=== PATIENT | male | born 1960 | race Caucasian/White ===

== ENCOUNTER 2016-06-03 11:02 | Inpatient (IN) ==
[2016-06-03] MEDS ORDERED: Ondansetron 4 MG/2 ML VIAL IVP ONE (11:19)
[2016-06-03] MEDS ORDERED: 0.9 % Sodium Chloride 1,000 ML IVC ONE (11:19)
[2016-06-03] MEDS ORDERED: *HR* HYDROmorphone (PF) 1 MG/ML SYRINGE IVP ONE (11:19)
--- NOTE | 2016-06-03 11:23 | Emergency Department Note ---
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 Qualified Code(s): E11.65 - Type 2 diabetes mellitus with hyperglycemia Pancreatitis Qualifiers: Chronicity: acute Pancreatitis type: unspecified pancreatitis type Acute pancreatitis complication: unspecified Qualified Code(s): K85.90 - Acute pancreatitis without necrosis or infection, unspecified Disposition: Admitted As Inpatient Condition: Fair Referrals: NO,PCP [Primary Care Provider] - Forms: Work/School Release, ED Satisfaction Letter Abdominal Pain HPI - General Chief Complaint: ED Abdominal Pain Stated Complaint: abd pain, vomiting Source: patient, family Nursing Notes Reviewed: Yes Vital Signs Reviewed: Yes - History of Present Illness HPI Narrative: 55-year-old male presents emergency Department with possible incarcerated hernia. Patient's had a long-standing abdominal hernia, was seen in the emergency Department several weeks ago I was told he needed to follow up with surgery. He did not. Comes in today because of worsening pain now and nausea and vomiting. Is not any diarrhea. She has the pain is mostly right around the herniation which is very hard this morning and radiates up into the midepigastric area. Denies chest pain or shortness of breath. Pt Subjective Complaint: abdominal pain Consistency: constant Location: RLQ Pain Scale: 10 Quality: cramping, sharp Radiation: epigastric Improves with: nothing Worsens with: eating Associated symptoms: Reports: nausea, vomiting Treatments prior to arrival: none - Related Data Home Medications Medication Instructions Recorded Confirmed No Known Home Drugs 06/03/16 06/03/16 Allergies Allergy/AdvReac Type Severity Reaction Status Date / Time No Known Allergies Allergy Verified 06/03/16 12:09 All systems ED: reviewed and negative except as stated. Constitutional: Reports: as per HPI Eyes: Reports: as per HPI ENT ED: Reports: as per HPI Cardiovascular: Reports: as per HPI Respiratory: Reports: as per HPI Gastrointestinal: Reports: abdominal pain, nausea, vomiting Abdominal Pain PMH - Past Medical History Medical history: Reports: diabetes, hypertension Male Surgical History: Reports: no surgical history Psychiatric history: Reports: depression - Social History Smoking status: Never smoker Alcohol use: Reports: none Drug use: Reports: none Physical Exam - General Limitations: no limitations General appearance: alert, in no apparent distress - Head Head exam: atraumatic - Eye Eye exam: Present: normal appearance - ENT ENT exam: normal exam, normal oropharynx - Neck Neck exam: Present: normal inspection - Chest Chest inspection: Present: normal inspection, symmetric chest wall rise - Respiratory Respiratory exam: Present: normal lung sounds bilaterally - Cardiovascular Cardiovascular exam: Present: regular rate, normal rhythm - Abdominal Exam Abdominal exam: Present: soft, tenderness, hernia (Patient has a large nonreducible abdominal wall hernia in the right lower quadrant. It is very tender to palpation. There is no evidence of surrounding cellulitis. It is soft but nonreducible.) - Extremities Exam Extremities exam: Present: normal inspection - Neurological Exam Neurological exam: Present: alert, oriented X3 - Psychiatric Psychiatric exam: Present: normal affect - Skin Skin exam: Present: warm, dry, intact Course Vital Signs Temperature 98.2 F 06/03/16 11:08 Pulse Rate 81 06/03/16 11:08 Respiratory Rate 20 06/03/16 11:08 Blood Pressure 138/97 06/03/16 11:08 O2 Sat by Pulse Oximetry 98 06/03/16 11:08 Temperature 98.2 F 06/03/16 11:08 Pulse Rate 81 06/03/16 11:08 Respiratory Rate 20 06/03/16 11:08 Blood Pressure 138/97 06/03/16 11:08 O2 Sat by Pulse Oximetry 98 06/03/16 11:08 Oxygen Delivery Oxygen Delivery Room Air Abdominal Pain - MDM Narrative Medical decision making narrative: We will do abdominal lab workup, will also get a CT scan of the abdomen and pelvis to evaluate the herniation. I was unable to reduce along the emergency department will likely follow with surgery to determine definitive management. Labs revealed elevated white blood cell count and evidence to suggest acute pancreatitis. CT scan revealed omental fat but no incarcerated bowel. There is also no pancreatic inflammation on CT. I think the patient may have had some bowel go into the herniated area but then come back in his symptoms are improved with pain control, unfortunately the patient had a variety of metabolic abnormalities hyperglycemia and the pancreatitis that required hospitalization. Patient says he has not been taking his medications for some time now and he sought a variety of him of which she does not remember the names. Will discuss with the hospitalist and arrange for admission to correct his multiple metabolic derangements. Final evaluation prior to admission patient's pain had improved substantially. - Lab Data Lab results reviewed: Yes I reviewed the patient's lab results. Result diagrams: 06/03/16 11:27 06/03/16 11:27 Lab Results 06/03/16 06/03/16 06/03/16 Range/Units 11:27 11:27 12:18 WBC 16.3 H (4.3-11.1) K/mcL RBC 5.67 H (4.19-5.50) M/mcL Hgb 15.4 (12.9-16.9) g/dL Hct 45.5 (37.5-50.1) % MCV 80.2 L (83.0-100.0) fL MCH 27.2 L (28.0-33.3) pg MCHC 33.8 (31.6-35.5) g/dL RDW 12.6 (11.5-14.5) % Plt Count 404 H (140-400) K/mcL MPV 8.9 L (9.4-12.4) fL Immature Gran % 0.6 (0-4) % Seg Neutrophils % 88.6 % Lymphocytes % 6.1 % Monocytes % 4.0 % Eosinophils % 0.5 % Basophils % 0.2 % Neutrophils # 14.5 H (1.6-8.9) K/mcL Lymphocytes # 1.0 (0.6-4.6) K/mcL Monocytes # 0.7 (0.0-1.3) K/mcL Eosinophils # 0.1 (0.0-0.6) K/mcL Basophils # 0.0 (0.0-0.2) K/mcL VBG pH (7.32-7.42) pH Units VBG pCO2 (41-51) mmHg VBG pO2 (25-40) mmHg VBG HCO3 (21-27) mEq/L Sodium 133 L (136-145) mEq/L Potassium 5.0 H (3.5-4.5) mEq/L Chloride 99 (98-109) mEq/L Carbon Dioxide 21 (19-29) mEq/L BUN 14 (8-26) mg/dL Creatinine 1.20 (0.72-1.25) mg/dL Est GFR ( Amer) > 60 (> 60) Est GFR (Non-Af Amer) > 60 (> 60) BUN/Creatinine Ratio 12 (6-26) Glucose 550 H* (70-99) mg/dL POC Glucose (58-89) Calculated Osmolality 302 H (280-300) Lactic Acid (0.5-2.2) mmol/L Calcium 9.8 (8.6-10.8) mg/dL Total Bilirubin 0.5 (0.2-1.2) mg/dL Direct Bilirubin 0.2 (0.0-0.5) mg/dL Indirect Bilirubin 0.3 (0.0-1.2) mg/dL AST 17 (5-34) Units/L ALT 12 (0-55) Units/L Alkaline Phosphatase 101 (38-126) Units/L Serum Total Protein 7.4 (6.0-8.3) g/dL Albumin 3.9 (3.5-5.0) g/dL Globulin 3.5 (2.4-3.5) g/dL Albumin/Globulin Ratio 1.1 (1.1-2.2) Amylase 798 H (25-125) Units/L Lipase 1404 H (8-78) Units/L Beta-Hydroxybutyric Acd 0.69 H (0.02-0.27) mmol/L Urine Color (Yellow) Urine Clarity (Clear) Urine pH (5.0-8.0) pH Units Ur Specific [place] (1.010-1.025) Urine Protein (Neg-Trace) mg/dL Urine Glucose (UA) (Normal) mg/dL Urine Ketones (Negative) mg/dL Urine Blood (Negative) Urine Nitrite (Negative) Urine Bilirubin (Negative) Urine Urobilinogen (Normal) mg/dL Ur Leukocyte Esterase (Negative) Ur Culture Indicated? (NO) 06/03/16 06/03/16 06/03/16 Range/Units 12:18 12:31 12:59 WBC (4.3-11.1) K/mcL RBC (4.19-5.50) M/mcL Hgb (12.9-16.9) g/dL Hct (37.5-50.1) % MCV (83.0-100.0) fL MCH (28.0-33.3) pg MCHC (31.6-35.5) g/dL RDW (11.5-14.5) % Plt Count (140-400) K/mcL MPV (9.4-12.4) fL Immature Gran % (0-4) % Seg Neutrophils % % Lymphocytes % % Monocytes % % Eosinophils % % Basophils % % Neutrophils # (1.6-8.9) K/mcL Lymphocytes # (0.6-4.6) K/mcL Monocytes # (0.0-1.3) K/mcL Eosinophils # (0.0-0.6) K/mcL Basophils # (0.0-0.2) K/mcL VBG pH 7.32 (7.32-7.42) pH Units VBG pCO2 56 H (41-51) mmHg VBG pO2 25 (25-40) mmHg VBG HCO3 28.9 H (21-27) mEq/L Sodium (136-145) mEq/L Potassium (3.5-4.5) mEq/L Chloride (98-109) mEq/L Carbon Dioxide (19-29) mEq/L BUN (8-26) mg/dL Creatinine (0.72-1.25) mg/dL Est GFR ( Amer) (> 60) Est GFR (Non-Af Amer) (> 60) BUN/Creatinine Ratio (6-26) Glucose (70-99) mg/dL POC Glucose (58-89) Calculated Osmolality (280-300) Lactic Acid 1.5 (0.5-2.2) mmol/L Calcium (8.6-10.8) mg/dL Total Bilirubin (0.2-1.2) mg/dL Direct Bilirubin (0.0-0.5) mg/dL Indirect Bilirubin (0.0-1.2) mg/dL AST (5-34) Units/L ALT (0-55) Units/L Alkaline Phosphatase (38-126) Units/L Serum Total Protein (6.0-8.3) g/dL Albumin (3.5-5.0) g/dL Globulin (2.4-3.5) g/dL Albumin/Globulin Ratio (1.1-2.2) Amylase (25-125) Units/L Lipase (8-78) Units/L Beta-Hydroxybutyric Acd (0.02-0.27) mmol/L Urine Color Yellow (Yellow) Urine Clarity Clear (Clear) Urine pH 5.0 (5.0-8.0) pH Units Ur Specific [place] 1.010 (1.010-1.025) Urine Protein Negative (Neg-Trace) mg/dL Urine Glucose (UA) >=1000 H (Normal) mg/dL Urine Ketones 15 H (Negative) mg/dL Urine Blood Negative (Negative) Urine Nitrite Negative (Negative) Urine Bilirubin Negative (Negative) Urine Urobilinogen Normal (Normal) mg/dL Ur Leukocyte Esterase Negative (Negative) Ur Culture Indicated? NO (NO) 06/03/16 Range/Units 13:44 WBC (4.3-11.1) K/mcL RBC (4.19-5.50) M/mcL Hgb (12.9-16.9) g/dL Hct (37.5-50.1) % MCV (83.0-100.0) fL MCH (28.0-33.3) pg MCHC (31.6-35.5) g/dL RDW (11.5-14.5) % Plt Count (140-400) K/mcL MPV (9.4-12.4) fL Immature Gran % (0-4) % Seg Neutrophils % % Lymphocytes % % Monocytes % % Eosinophils % % Basophils % % Neutrophils # (1.6-8.9) K/mcL Lymphocytes # (0.6-4.6) K/mcL Monocytes # (0.0-1.3) K/mcL Eosinophils # (0.0-0.6) K/mcL Basophils # (0.0-0.2) K/mcL VBG pH (7.32-7.42) pH Units VBG pCO2 (41-51) mmHg VBG pO2 (25-40) mmHg VBG HCO3 (21-27) mEq/L Sodium (136-145) mEq/L Potassium (3.5-4.5) mEq/L Chloride (98-109) mEq/L Carbon Dioxide (19-29) mEq/L BUN (8-26) mg/dL Creatinine (0.72-1.25) mg/dL Est GFR ( Amer) (> 60) Est GFR (Non-Af Amer) (> 60) BUN/Creatinine Ratio (6-26) Glucose (70-99) mg/dL POC Glucose 303 H (58-89) Calculated Osmolality (280-300) Lactic Acid (0.5-2.2) mmol/L Calcium (8.6-10.8) mg/dL Total Bilirubin (0.2-1.2) mg/dL Direct Bilirubin (0.0-0.5) mg/dL Indirect Bilirubin (0.0-1.2) mg/dL AST (5-34) Units/L ALT (0-55) Units/L Alkaline Phosphatase (38-126) Units/L Serum Total Protein (6.0-8.3) g/dL Albumin (3.5-5.0) g/dL Globulin (2.4-3.5) g/dL Albumin/Globulin Ratio (1.1-2.2) Amylase (25-125) Units/L Lipase (8-78) Units/L Beta-Hydroxybutyric Acd (0.02-0.27) mmol/L Urine Color (Yellow) Urine Clarity (Clear) Urine pH (5.0-8.0) pH Units Ur Specific [place] (1.010-1.025) Urine Protein (Neg-Trace) mg/dL Urine Glucose (UA) (Normal) mg/dL Urine Ketones (Negative) mg/dL Urine Blood (Negative) Urine Nitrite (Negative) Urine Bilirubin (Negative) Urine Urobilinogen (Normal) mg/dL Ur Leukocyte Esterase (Negative) Ur Culture Indicated? (NO) - Radiology Data Radiology results reviewed: Yes I reviewed the patient's radiology results. - EKG Data EKG attestation: Yes I reviewed and interpreted this EKG. EKG shows normal: sinus rhythm Rate: normal Interpretation: no acute changes
[2016-06-03 11:33] LABS: Basophils % 0.2 %; Eosinophils # 0.1 K/mcL (0.0-0.6); Eosinophils % 0.5 %; Hematocrit 45.5 % (37.5-50.1); Hemoglobin 15.4 g/dL (12.9-16.9); Immature Granulocytes % 0.6 % (0-4); Lymphocytes % 6.1 %; Mean Corpuscular HGB Conc 33.8 g/dL (31.6-35.5); Mean Corpuscular Hemoglobin 27.2 pg (28.0-33.3); Mean Corpuscular Volume 80.2 fL (83.0-100.0); Mean Platelet Volume 8.9 fL (9.4-12.4); Monocytes # 0.7 K/mcL (0.0-1.3); Neutrophils # 14.5 K/mcL (1.6-8.9); Platelet Count 404 K/mcL (140-400); Red Blood Count 5.67 M/mcL (4.19-5.50); Red Cell Distribution Width 12.6 % (11.5-14.5); Segmented Neutrophils % 88.6 %
[2016-06-03 11:47] LABS: Alanine Aminotransferase 12 Units/L (0-55); Albumin 3.9 g/dL (3.5-5.0); Albumin/Globulin Ratio 1.1 (1.1-2.2); Alkaline Phosphatase 101 Units/L (38-126); Amylase 798 Units/L (25-125); Aspartate Amino Transferase 17 Units/L (5-34); BUN/Creatinine Ratio 12 (6-26); Bilirubin,Direct 0.2 mg/dL (0.0-0.5); Bilirubin,Indirect 0.3 mg/dL (0.0-1.2); Bilirubin,Total 0.5 mg/dL (0.2-1.2); Blood Urea Nitrogen 14 mg/dL (8-26); Calcium 9.8 mg/dL (8.6-10.8); Carbon Dioxide 21 mEq/L (19-29); Chloride 99 mEq/L (98-109); Globulin 3.5 g/dL (2.4-3.5); Osmolality,Calculated 302 (280-300); Sodium 133 mEq/L (136-145); Total Protein 7.4 g/dL (6.0-8.3); eGFR For African Americans > 60 (> 60); eGFR For Non-African Americans > 60 (> 60)
[2016-06-03 11:55] LABS: Glucose 550 mg/dL (70-99)
[2016-06-03 12:02] LABS: Lipase 1404 Units/L (8-78)
[2016-06-03] MEDS ORDERED: Insulin Human Regular 10 UNIT in 0.9 % Sodium Chloride 10 ML IV ONE (12:02)
[2016-06-03 12:24] LABS: VBG HCO3 28.9 mEq/L (21-27); VBG PH 7.32 pH Units (7.32-7.42)
[2016-06-03 12:41] LABS: Bilirubin,Urine Negative (Negative); Blood,Urine Negative (Negative); Clarity,Urine Clear (Clear); Color,Urine Yellow (Yellow); Glucose,Urine (UA) >=1000 mg/dL (Normal); Ketones,Urine 15 mg/dL (Negative); Leukocyte Esterase,Urine Negative (Negative); Nitrite,Urine Negative (Negative); Protein,Urine Negative (Neg-Trace); Urobilinogen,Urine Normal (Normal)
[2016-06-03] MEDS ORDERED: Naloxone 0.4 MG/ML INJ IVP PRN (16:04)
[2016-06-03] MEDS ORDERED: *HR* HYDROmorphone (PF) 1 MG/ML SYRINGE IVP PRN (16:04)
[2016-06-03] MEDS ORDERED: Ondansetron 4 MG/2 ML VIAL IVP PRN (16:04)
[2016-06-03] MEDS ORDERED: Acetaminophen 325 MG TABLET PO PRN (16:04)
--- NOTE | 2016-06-03 16:04 | Internal Med History&Physical ---
<Echo Garcia - Last Filed: 06/03/16 16:40> Date of Encounter: 06/03/16 Time of Encounter: 15:00 Assessment and Plan (1) Hernia of anterior abdominal wall Current visit: Yes Status: Acute 1 patient has had chronic umbilical hernia was experiencing pain this a.m.- presented to the ER CT of abdomen did not reveal no incarceration it was partially reproduced. consulted surgery-Dr. Caicedo was notified by telephone (2) Abdominal pain Current visit: Yes Status: Acute 1 patient was having acute abdominal pain which has presently resolved -patient has elevated lipase- will make nothing by mouth for now and administer Dilaudid as needed Qualifiers: Abdominal location: periumbilical Qualified Code(s): R10.33 - Periumbilical pain (3) Hyperglycemia due to type 2 diabetes mellitus Current visit: Yes Status: Acute 1 patient has history of type 2 diabetes is insulin-dependent however has not been taking insulin or checking blood sugars for approximately 6-8 months due to he has not been following with a prior care physician. He presented today with a blood sugar greater than 550 he also had elevated lipase 1440 was given IV insulin in the ER recheck blood sugars down to 240. 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 T's 12 total bili is 0.5 directives 0.2 and direct 0.3 calcium 9.8. We will continue to check lipase will give IV fluids of LR maintain patient nothing by mouth administer insulin for blood sugars Dilaudid and Zofran for pain and nausea Qualifiers: Chronicity: acute Pancreatitis type: unspecified pancreatitis type Acute pancreatitis complication: unspecified Qualified Code(s): K85.90 - Acute pancreatitis without necrosis or infection, unspecified (5) DVT prophylaxis Current visit: Yes Status: Acute 1 DELMA anthony Internal Medicine - H&P: HPI Chief complaint: abd pain Admitted From: Home Plans for Post Hospital Care: Home History of present illness: Mr. Pan is a 55 year old male with past history of TIA diabetes hypertension anxiety/depression. According to patient he woke approximately 9 AM this morning with sharp pain 10/10 around a long-standing umbilical hernia radiating up into the mid epigastric area. His abdomen was firm and hernia was hard and tender to touch He did experience episodes of nausea and vomiting of undigested food. He did have a bowel movement after the pain initiated, which she stated helped relieved some of the pain. He denies any chest pain shortness of breath fever chills or diarrhea . He presented to the emergency department with the above complaints. According to ER records attempts were made to reduce hernia however was only able to partially reduce. CT scan was obtained which revealed umbilical hernia containing fat as well as a right inguinal hernia containing fat. Lab work revealed elevated glucose at 550 potassium of 5 sodium 133 amylase 798 lipase 1404 venous blood gas with pH 7.32 PCO2 56 PO2 is 25 bicarbonate 28.9 lactate 1.5. The patient was given IV insulin as well as pain medication antiemetic and IV fluids He is admitted for further workup and evaluation. He did have a similar episode a few months ago was seen in the emergency department for similar symptoms he was advised to follow-up with surgery which he did not. He has not seen his primary care doctor in approximately 6-8 months and has not been taking insulin or any medication for the past 6-8 months. Presently the patient denies any pain/discomfort nausea or vomiting at this time. His abdomen is soft nontender, umbilical hernia soft surrounding skin is pink and warm no discoloration noted. At this time he is hemodynamically stable. I reviewed this case with who agrees with the plan. Past Med Surg Social Fam HX - Past Medical History Medical history: diabetes, hypertension Psychiatric history: depression - Past Surgical History Surgical History: no surgical history - Social History Smoking Status: Never smoker Smokeless Tobacco Status: No Alcohol use: none Drug use: none - Family History Mother Living Status: Hx Family Endocrine Disorder: Yes Father Living Status: Cause of : suicide Internal Medicine - H&P: Meds No Known Home Drugs 06/03/16 [History] Allergies No Known Allergies Allergy (Verified 06/03/16 12:09) All Systems PM: A 10-system review of systems was performed and is negative for pertinent findings except as documented above in the HPI. - Constitutional Constitutional: no chills, no fever(s), no night sweats - EENT Eyes: no change in vision, no discharge, no pain, no photophobia - Cardiovascular Cardiovascular ROS IM: no chest pain, no diaphoresis, no dyspnea, no lightheadedness, no palpitations, no syncope - Respiratory Respiratory: no cough, no dyspnea, no wheezing, no excessive phlegm production - Gastrointestinal Gastrointestinal: abdominal pain, constipation, nausea, vomiting - Musculoskeletal Musculoskeletal ROS IM: no numbness, no tingling - Neurological Neurological ROS: no confusion, no convulsions, no focal weakness, no numbness, no tingling, no tremor(s) - Constitutional Vitals: Temp Pulse Resp BP Pulse Ox 97.9 F 69 16 124/76 95 06/03/16 14:43 06/03/16 14:43 06/03/16 14:43 06/03/16 14:43 06/03/16 14:43 General appearance: Present: A&O X 3, answers questions appropriately - Head Head exam: Present: atraumatic, normocephalic - Eye Eye exam: Present: PERRL, conjuntiva pink, sclera anicteric Pupils: Present: PERRL - Neck Neck exam general surgery: Present: supple, trachea midline. Absent: lymphadenopathy - Respiratory Respiratory exam: Present: CTAB. Absent: accessory muscle use, rales, rhonchi, wheezes - Cardiovascular Cardiovascular exam: Present: RRR, +S1, +S2. Absent: diastolic murmur, gallop, rubs, systolic murmur - GI/Abdominal GI/Abdominal exam: Present: hernia, normal bowel sounds, soft, no peritoneal signs. Absent: distended, tenderness - Extremities Exam Extremities exam: Present: warm, radial pulses palpable and symetrical. Absent : calf tenderness, cyanotic, pedal edema - Neurological Exam Neurological exam: Present: CN II-XII intact, oriented X3, no focal deficits. Absent: pronater drift, facial droop, speech deficit Internal Med - H&P Results - Labs CBC & Chem 7: 06/03/16 11:27 06/03/16 11:27 - EKG Data EKG shows normal: sinus rhythm, ST-T waves Rate: normal - Diagnostic Studies CT scan - abdomen Additional comments: Per radiology read umbilical hernia contains fat only. There is also a fat- containing right inguinal hernia <Stuart Meyer - Last Filed: 06/04/16 09:03> Date of Encounter: 06/04/16 Internal Medicine - H&P: HPI History of present illness: Mr. Pan is a 55 year old male All Systems PM: A 10-system review of systems was performed and is negative for pertinent findings except as documented above in the HPI. - Constitutional Vitals: Temp Pulse Resp BP Pulse Ox 98.3 F 77 16 129/83 95 06/04/16 07:15 06/04/16 07:15 06/04/16 07:15 06/04/16 07:15 06/04/16 07:15 Internal Med - H&P Results - Labs CBC & Chem 7: 06/04/16 04:01 06/04/16 04:01 Labs: Short CBC 06/04/16 Range/Units 04:01 WBC 14.0 H (4.3-11.1) K/mcL Hgb 14.1 (12.9-16.9) g/dL Hct 41.0 (37.5-50.1) % Plt Count 347 (140-400) K/mcL Neutrophils # 11.3 H (1.6-8.9) K/mcL BMP 06/04/16 04:01 Sodium 138 Potassium 4.0 D Chloride 106 Carbon Dioxide 22 BUN 11 Creatinine 0.80 Glucose 175 H Calcium 9.1 Liver Function 06/04/16 Range/Units 04:01 Total Bilirubin 0.7 (0.2-1.2) mg/dL Direct Bilirubin 0.3 (0.0-0.5) mg/dL AST 15 (5-34) Units/L ALT 10 (0-55) Units/L Alkaline Phosphatase 80 (38-126) Units/L Albumin 3.2 L (3.5-5.0) g/dL - Attending Attestation I examined this patient and my medical decision-making was reviewed with the Advanced Practice Provider. I agree with the documented findings, disposition and treatment plan as described except to the extent set forth below. Patient presented to the hospital with severe abdominal pain, he has a periumbilical hernia. On exam he is in no distress heart is regular S1 and S2. Abdomen is soft nontender nondistended, orange-sized umbilical hernia partially was reducible and nontender to palpation. CT scan of the abdomen reviewed by myself shows fat-containing umbilical hernia. Lipase was elevated. We will treat the patient for acute pancreatitis. Nothing by mouth. IV LR. Surgical consult. Repeat amylase and lipase in the morning.
[2016-06-03] MEDS ORDERED: Dextrose Gel 15 GM PO PRN ×2 (16:12)
[2016-06-03] MEDS ORDERED: *HR* Dextrose 50 % in Water (Syg) 50 ML SYRINGE IVP PRN (16:12)
[2016-06-03] MEDS ORDERED: D5% in Water 1,000 ML IV PRN (16:12)
[2016-06-03] MEDS ORDERED: Ringers Solution, Lactated 1,000 ML IVC SCH (16:15)
[2016-06-03] MEDS: Ringers Solution, Lactated 1,000 ML IVC SCH (17:43)
[2016-06-03] MEDS: Insulin LISPRO 300 UNITS/3 ML VIAL SQ SCH (18:32)
[2016-06-03] MEDS: Pantoprazole 40 MG VIAL IVP SCH (19:35)
[2016-06-04] MEDS: Insulin LISPRO 300 UNITS/3 ML VIAL SQ SCH ×4 (00:47→18:00)
[2016-06-04] MEDS: Ringers Solution, Lactated 1,000 ML IVC SCH ×3 (00:50→17:45)
[2016-06-04 04:43] LABS: Basophils % 0.3 %; Eosinophils # 0.2 K/mcL (0.0-0.6); Eosinophils % 1.1 %; Hemoglobin 14.1 g/dL (12.9-16.9); Immature Granulocytes % 0.6 % (0-4); Lymphocytes # 1.7 K/mcL (0.6-4.6); Lymphocytes % 12.4 %; Mean Corpuscular HGB Conc 34.4 g/dL (31.6-35.5); Mean Corpuscular Hemoglobin 27.8 pg (28.0-33.3); Mean Corpuscular Volume 80.7 fL (83.0-100.0); Monocytes # 0.7 K/mcL (0.0-1.3); Monocytes % 4.8 %; Neutrophils # 11.3 K/mcL (1.6-8.9); Platelet Count 347 K/mcL (140-400); Red Blood Count 5.08 M/mcL (4.19-5.50); Red Cell Distribution Width 12.7 % (11.5-14.5); Segmented Neutrophils % 80.8 %
[2016-06-04 04:52] LABS: Estimated Average Glucose > 355 mg/dl; Hemoglobin A1C >= 14.1 %
[2016-06-04 05:01] LABS: Alanine Aminotransferase 10 Units/L (0-55); Albumin 3.2 g/dL (3.5-5.0); Albumin/Globulin Ratio 1.1 (1.1-2.2); Alkaline Phosphatase 80 Units/L (38-126); Amylase 294 Units/L (25-125); Aspartate Amino Transferase 15 Units/L (5-34); BUN/Creatinine Ratio 14 (6-26); Bilirubin,Direct 0.3 mg/dL (0.0-0.5); Bilirubin,Indirect 0.4 mg/dL (0.0-1.2); Bilirubin,Total 0.7 mg/dL (0.2-1.2); Blood Urea Nitrogen 11 mg/dL (8-26); Calcium 9.1 mg/dL (8.6-10.8); Carbon Dioxide 22 mEq/L (19-29); Chloride 106 mEq/L (98-109); Glucose 175 mg/dL (70-99); Lipase 195 Units/L (8-78); Osmolality,Calculated 290 (280-300); Sodium 138 mEq/L (136-145); Total Protein 6.2 g/dL (6.0-8.3); eGFR For African Americans > 60 (> 60); eGFR For Non-African Americans > 60 (> 60)
[2016-06-04] MEDS: Pantoprazole 40 MG VIAL IVP SCH (09:16)
--- NOTE | 2016-06-04 16:32 | Internal Med Progress Note ---
Date of Encounter: 06/04/16 Time of Encounter: 11:00 - Assessment and plan (1) Pancreatitis Current Visit: Yes Status: Acute Assessment and plan: will advance diet to CLD today. Less pain. Contne with iv fluids. Qualifiers: Chronicity: acute Pancreatitis type: unspecified pancreatitis type Acute pancreatitis complication: unspecified Qualified Code(s): K85.90 - Acute pancreatitis without necrosis or infection, unspecified (2) Hernia of anterior abdominal wall Current Visit: Yes Status: Acute Assessment and plan: Follow Surgical team recommendations. (3) Hyperglycemia due to type 2 diabetes mellitus Current Visit: Yes Status: Acute Assessment and plan: Continue with insulin therapy. HbA1C 14. Qualifiers: Diabetes mellitus fdc insulin use: with fdc use Qualified Code( s): E11.65 - Type 2 diabetes mellitus with hyperglycemia; Z79.4 - group home ( current) use of insulin (4) DVT prophylaxis Current Visit: Yes Status: Acute - Time Spent With Patient 25 - 35 minutes - Subjective Interval history: Patient was seen and examined during rounds. He denied pain during this encounter. - Constitutional Vitals: Temp Pulse Resp BP Pulse Ox 98.0 F 68 14 142/90 96 06/04/16 14:54 06/04/16 14:54 06/04/16 14:54 06/04/16 14:54 06/04/16 14:54 General appearance: Present: A&O X 3, answers questions appropriately Exam: umbilicla hernia noted. no tenderness. - Head Head exam: Present: atraumatic, normocephalic - Eye Eye exam: Present: PERRL, conjuntiva pink, sclera anicteric Pupils: Present: PERRL - Neck Neck exam general surgery: Present: supple, trachea midline. Absent: lymphadenopathy - Respiratory Respiratory exam: Present: CTAB. Absent: accessory muscle use, rales, rhonchi, wheezes - Cardiovascular Cardiovascular exam: Present: RRR, +S1, +S2. Absent: diastolic murmur, gallop, rubs, systolic murmur - GI/Abdominal GI/Abdominal exam: Present: normal bowel sounds, soft, no peritoneal signs. Absent: distended, tenderness - Extremities Exam Extremities exam: Present: warm, radial pulses palpable and symetrical. Absent : calf tenderness, cyanotic, pedal edema - Neurological Exam Neurological exam: Present: CN II-XII intact, oriented X3, no focal deficits. Absent: pronater drift, facial droop, speech deficit - Skin Skin exam: Present: dry, intact Internal Medicine: Result - Labs CBC & Chem 7: 06/04/16 04:01 06/04/16 04:01 Labs: Short CBC 06/04/16 Range/Units 04:01 WBC 14.0 H (4.3-11.1) K/mcL Hgb 14.1 (12.9-16.9) g/dL Hct 41.0 (37.5-50.1) % Plt Count 347 (140-400) K/mcL Neutrophils # 11.3 H (1.6-8.9) K/mcL BMP 06/04/16 04:01 Sodium 138 Potassium 4.0 D Chloride 106 Carbon Dioxide 22 BUN 11 Creatinine 0.80 Glucose 175 H Calcium 9.1 Liver Function 06/04/16 Range/Units 04:01 Total Bilirubin 0.7 (0.2-1.2) mg/dL Direct Bilirubin 0.3 (0.0-0.5) mg/dL AST 15 (5-34) Units/L ALT 10 (0-55) Units/L Alkaline Phosphatase 80 (38-126) Units/L Albumin 3.2 L (3.5-5.0) g/dL Consult Discharge Plan - Plan Referrals: Omkar Cobb MD [Partnered Physician] -
--- NOTE | 2016-06-04 16:45 | General Surgery Consult Note ---
<Yung Wilks - Last Filed: 06/04/16 16:49> Date of Encounter: 06/04/16 Time of Encounter: 11:10 Assessment and Plan (1) Hernia of anterior abdominal wall Current Visit: Yes Status: Acute Currently pain has resolved. Discussed option of herniorrhaphy today, to which patient declined, stating he rather pursue surgery as an outpatient at a later time. Surgery will sign off at this time, thank you for involving us in this patient' s care. Please feel free to contact us with any further questions. (2) Abdominal pain Current Visit: Yes Status: Resolved Qualifiers: Abdominal location: periumbilical Qualified Code(s): R10.33 - Periumbilical pain (3) Hyperglycemia due to type 2 diabetes mellitus Current Visit: Yes Status: Chronic Noncompliant, A1C >=14.1 Management per medicine service Will need follow up with primary care provider. Qualifiers: Diabetes mellitus butcherette insulin use: with shelter use Qualified Code( s): E11.65 - Type 2 diabetes mellitus with hyperglycemia; Z79.4 - USP ( current) use of insulin (4) Pancreatitis Current Visit: Yes Status: Acute Improving Amylase 798>294 Lipase 1404>195 Management per medicine service Qualifiers: Chronicity: acute Pancreatitis type: unspecified pancreatitis type Acute pancreatitis complication: unspecified Qualified Code(s): K85.90 - Acute pancreatitis without necrosis or infection, unspecified History of Present Illness Consult date: 06/03/16 Reason for consult: hernia Requesting physician: Echo Garcia History of present illness: Mr. Pan is a 55 year old male that present to the ED for sudden sharp pain yesterday morning around his long-standing umbilical hernia of approx 20 years. He states he has had similar pain in the past, approx 4 months ago that resolved on its own. Patient states he had both nausea and vomiting prior to arrival. He denies any chest pain, shortness of breath, diarrhea, constipation. CT done in ED showed umbilical hernia containing fat only; there is also a fat- containing right inguinal hernia. In the ED patient was also found to be hyperglycemic with BG 550 (A1C >=14.1) and elevated amylase 798 and lipase 1404. Patient admitted to Medicine Service for further evaluation. Patient states he does not have a primary care provider. Past Med Surg Social Fam HX - Past Medical History Source: patient Medical history: diabetes, hypertension Psychiatric history: depression - Past Surgical History Surgical History: no surgical history - Social History Smoking Status: Never smoker Smokeless Tobacco Status: No Alcohol use: none Drug use: none - Family History Mother Living Status: Hx Family Endocrine Disorder: Yes Father Living Status: Cause of : suicide Medications and Allergies No Known Home Drugs 06/03/16 [History] Allergies No Known Allergies Allergy (Verified 06/03/16 12:09) Review of Systems All systems PM: A 10-system review of systems was performed and is negative for pertinent findings except as documented above in the HPI. - Constitutional no chills, no fever(s) - EENT Nose, mouth and throat: no dizziness, no dysphagia - Cardiovascular no chest pain, no dyspnea - Respiratory no dyspnea - Gastrointestinal abdominal pain, nausea, vomiting, no constipation, no diarrhea - Genitourinary no dysuria - Neurological no confusion, no dizziness General Surgery Exam Initial Vital Signs Temp Pulse Resp BP Pulse Ox 98.2 F 81 20 138/97 98 06/03/16 11:08 06/03/16 11:08 06/03/16 11:08 06/03/16 11:08 06/03/16 11:08 - General physical appearance well developed, well nourished, no distress - Eyes normal ocular movement - ENT normal mucosa, atraumatic, normocephalic - Neck trachea midline - Respiratory normal respiratory effort, clear to auscultation - Cardiovascular Cardiovascular exam: Present: RRR - Abdomen Abdomen general surgery: Present: bowel sounds present, soft, non tender Hernia: Present: umbilical (partially reducible) - Integumentary Integumentary general surgery: Present: warm and dry, no abnormal pigmentation - Neurologic Present: CN 2-12 grossly intact - Psychiatric Psychiatric general surgery: Present: A&Ox3, speech is normal, memory intact Exam Initial Vital Signs Temp Pulse Resp BP Pulse Ox 98.2 F 81 20 138/97 98 06/03/16 11:08 06/03/16 11:08 06/03/16 11:08 06/03/16 11:08 06/03/16 11:08 Results - Labs 06/04/16 04:01 06/04/16 04:01 Abnormal lab results WBC 14.0 K/mcL (4.3-11.1) H 06/04/16 04:01 MCV 80.7 fL (83.0-100.0) L 06/04/16 04:01 MCH 27.8 pg (28.0-33.3) L 06/04/16 04:01 MPV 9.0 fL (9.4-12.4) L 06/04/16 04:01 Neutrophils # 11.3 K/mcL (1.6-8.9) H 06/04/16 04:01 VBG pCO2 56 mmHg (41-51) H 06/03/16 12:18 VBG HCO3 28.9 mEq/L (21-27) H 06/03/16 12:18 Glucose 175 mg/dL (70-99) H 06/04/16 04:01 POC Glucose 186 (58-89) H 06/04/16 11:15 Hemoglobin A1c >= 14.1 % (-5.6) H 06/04/16 04:01 Albumin 3.2 g/dL (3.5-5.0) L 06/04/16 04:01 Amylase 294 Units/L (25-125) H 06/04/16 04:01 Lipase 195 Units/L (8-78) H 06/04/16 04:01 Beta-Hydroxybutyric Acd 0.69 mmol/L (0.02-0.27) H 06/03/16 12:18 Urine Glucose (UA) >=1000 mg/dL (Normal) H 06/03/16 12:31 Urine Ketones 15 mg/dL (Negative) H 06/03/16 12:31 Diabetes panel 06/04/16 06/04/16 Range/Units 04:01 04:01 Sodium 138 (136-145) mEq/L Potassium 4.0 D (3.5-4.5) mEq/L Chloride 106 (98-109) mEq/L Carbon Dioxide 22 (19-29) mEq/L BUN 11 (8-26) mg/dL Creatinine 0.80 (0.72-1.25) mg/dL Glucose 175 H (70-99) mg/dL Hemoglobin A1c >= 14.1 H ( - 5.6) % Calcium 9.1 (8.6-10.8) mg/dL AST 15 (5-34) Units/L ALT 10 (0-55) Units/L Alkaline Phosphatase 80 (38-126) Units/L Albumin 3.2 L (3.5-5.0) g/dL Calcium panel 06/04/16 Range/Units 04:01 Calcium 9.1 (8.6-10.8) mg/dL Albumin 3.2 L (3.5-5.0) g/dL Pituitary panel 06/04/16 Range/Units 04:01 Sodium 138 (136-145) mEq/L Potassium 4.0 D (3.5-4.5) mEq/L Chloride 106 (98-109) mEq/L Carbon Dioxide 22 (19-29) mEq/L BUN 11 (8-26) mg/dL Creatinine 0.80 (0.72-1.25) mg/dL Glucose 175 H (70-99) mg/dL Calcium 9.1 (8.6-10.8) mg/dL Adrenal panel 06/04/16 Range/Units 04:01 Sodium 138 (136-145) mEq/L Potassium 4.0 D (3.5-4.5) mEq/L Chloride 106 (98-109) mEq/L Carbon Dioxide 22 (19-29) mEq/L BUN 11 (8-26) mg/dL Creatinine 0.80 (0.72-1.25) mg/dL Glucose 175 H (70-99) mg/dL Calcium 9.1 (8.6-10.8) mg/dL Total Bilirubin 0.7 (0.2-1.2) mg/dL AST 15 (5-34) Units/L ALT 10 (0-55) Units/L Alkaline Phosphatase 80 (38-126) Units/L Albumin 3.2 L (3.5-5.0) g/dL All other labs normal. Consult Discharge Plan - Plan Additional Instructions: Call Surgery when you would like to further discuss hernia repair. Referrals: Maddie Caicedo MD [Partnered Physician] - (Patient to call when he is ready to discuss further about hernia repair.) Omkar Cobb MD [Partnered Physician] - <Maddie Caicedo - Last Filed: 06/04/16 18:01> Date of Encounter: 06/04/16 Assessment and Plan (1) Umbilical hernia, incarcerated Current Visit: Yes Status: Chronic Patient had a 20 year history of this hernia. It is incarcerated but not strangulated. CT scan shows only omental fat within the hernia defect. There is no stranding around the omentum on the CT scan. Discussed with the patient potentially going to the OR today for an open hernia repair with mesh since he is in the hospital and came because he was symptomatic. Patient declined at this time and states that he would like to get his medical issues under control first which is reasonable. He should be referred to the family practice clinic upon discharge as he has no PCP. Gen. surgery will sign off at this time, and please call back if needed History of Present Illness History of present illness: Patient is a 55-year-old male who has had a long-standing umbilical hernia which she states for approximately 20 years. He normally does not bother him but he has had several episodes in the past but has a few times more recently. Yesterday he started having periumbilical pain which she described as sharp without radiation. He had nausea yesterday and today and vomiting as well. Review of Systems All systems PM: reviewed and no additional remarkable complaints except as stated All systems PM: A 10-system review of systems was performed and is negative for pertinent findings except as documented above in the HPI. General Surgery Exam Initial Vital Signs Temp Pulse Resp BP Pulse Ox 98.2 F 81 20 138/97 98 06/03/16 11:06/03/16 11:06/03/16 11:06/03/16 11:06/03/16 11:08 - General physical appearance well developed, well nourished, no distress - Eyes PERRL, normal ocular movement - ENT normal mucosa, atraumatic, normocephalic - Respiratory normal expansion, clear to auscultation - Cardiovascular Cardiovascular exam: Present: RRR - Abdomen Abdomen general surgery: Present: bowel sounds present, soft, non tender Hernia: Present: umbilical (Very large non-reducible umbilical hernia, no overlying skin changes, nontender) - Integumentary Integumentary general surgery: Present: warm and dry, no abnormal pigmentation - Neurologic Present: CN 2-12 grossly intact - Musculoskeletal Present: normal gait, normal posture - Psychiatric Psychiatric general surgery: Present: A&Ox3, speech is normal Exam Initial Vital Signs Temp Pulse Resp BP Pulse Ox 98.2 F 81 20 138/97 98 06/03/16 11:06/03/16 11:08 06/03/16 11:08 06/03/16 11:08 06/03/16 11:08 Results - Labs 06/04/16 04:01 06/04/16 04:01 Abnormal lab results WBC 14.0 K/mcL (4.3-11.1) H 06/04/16 04:01 MCV 80.7 fL (83.0-100.0) L 06/04/16 04:01 MCH 27.8 pg (28.0-33.3) L 06/04/16 04:01 MPV 9.0 fL (9.4-12.4) L 06/04/16 04:01 Neutrophils # 11.3 K/mcL (1.6-8.9) H 06/04/16 04:01 VBG pCO2 56 mmHg (41-51) H 06/03/16 12:18 VBG HCO3 28.9 mEq/L (21-27) H 06/03/16 12:18 Glucose 175 mg/dL (70-99) H 06/04/16 04:01 POC Glucose 160 (58-89) H 06/04/16 17:15 Hemoglobin A1c >= 14.1 % (-5.6) H 06/04/16 04:01 Albumin 3.2 g/dL (3.5-5.0) L 06/04/16 04:01 Amylase 294 Units/L (25-125) H 06/04/16 04:01 Lipase 195 Units/L (8-78) H 06/04/16 04:01 Beta-Hydroxybutyric Acd 0.69 mmol/L (0.02-0.27) H 06/03/16 12:18 Urine Glucose (UA) >=1000 mg/dL (Normal) H 06/03/16 12:31 Urine Ketones 15 mg/dL (Negative) H 06/03/16 12:31 Diabetes panel 06/04/16 06/04/16 Range/Units 04:01 04:01 Sodium 138 (136-145) mEq/L Potassium 4.0 D (3.5-4.5) mEq/L Chloride 106 (98-109) mEq/L Carbon Dioxide 22 (19-29) mEq/L BUN 11 (8-26) mg/dL Creatinine 0.80 (0.72-1.25) mg/dL Glucose 175 H (70-99) mg/dL Hemoglobin A1c >= 14.1 H ( - 5.6) % Calcium 9.1 (8.6-10.8) mg/dL AST 15 (5-34) Units/L ALT 10 (0-55) Units/L Alkaline Phosphatase 80 (38-126) Units/L Albumin 3.2 L (3.5-5.0) g/dL Calcium panel 06/04/16 Range/Units 04:01 Calcium 9.1 (8.6-10.8) mg/dL Albumin 3.2 L (3.5-5.0) g/dL Pituitary panel 06/04/16 Range/Units 04:01 Sodium 138 (136-145) mEq/L Potassium 4.0 D (3.5-4.5) mEq/L Chloride 106 (98-109) mEq/L Carbon Dioxide 22 (19-29) mEq/L BUN 11 (8-26) mg/dL Creatinine 0.80 (0.72-1.25) mg/dL Glucose 175 H (70-99) mg/dL Calcium 9.1 (8.6-10.8) mg/dL Adrenal panel 06/04/16 Range/Units 04:01 Sodium 138 (136-145) mEq/L Potassium 4.0 D (3.5-4.5) mEq/L Chloride 106 (98-109) mEq/L Carbon Dioxide 22 (19-29) mEq/L BUN 11 (8-26) mg/dL Creatinine 0.80 (0.72-1.25) mg/dL Glucose 175 H (70-99) mg/dL Calcium 9.1 (8.6-10.8) mg/dL Total Bilirubin 0.7 (0.2-1.2) mg/dL AST 15 (5-34) Units/L ALT 10 (0-55) Units/L Alkaline Phosphatase 80 (38-126) Units/L Albumin 3.2 L (3.5-5.0) g/dL All other labs normal. - Imaging CT scan - abdomen: report reviewed, image reviewed CT scan - pelvis: report reviewed, image reviewed - Attending Attestation I examined this patient and my medical decision-making was reviewed with the SHELL FREEZING MACHINE OPERATOR/PA/Advanced Practice Nurse/Resident Physician. I agree with the documented findings, disposition and treatment plan as described except to the extent set forth below.
[2016-06-05] MEDS: Insulin LISPRO 300 UNITS/3 ML VIAL SQ SCH ×3 (00:05→11:27)
--- NOTE | 2016-06-05 00:33 | Electrocardiograph Report ---
[facility] Test Date: 2016-06-03 Pat Name: Romeo Pan Department: 103 Room: 3A42 Gender: M [employer]: : [id number] Requested By: Codey Cardona Order Number: [id number] Reading MD: Adonis Taveras MD Measurements Intervals [place] Rate: 70 P: 16 NV: 133 QRS: -18 QRSD: 97 T: 21 QT: 379 QTc: 400 Interpretive Statements SINUS RHYTHM Electronically Signed On 06-05-16 00:32:33 EST by Adonis Taveras MD
[2016-06-05] MEDS: Ringers Solution, Lactated 1,000 ML IVC SCH ×2 (01:57→09:45)
[2016-06-05 04:44] LABS: Basophils % 0.3 %; Eosinophils # 0.2 K/mcL (0.0-0.6); Eosinophils % 2.2 %; Hematocrit 39.2 % (37.5-50.1); Hemoglobin 13.4 g/dL (12.9-16.9); Immature Granulocytes % 0.4 % (0-4); Lymphocytes # 2.2 K/mcL (0.6-4.6); Lymphocytes % 21.8 %; Mean Corpuscular HGB Conc 34.2 g/dL (31.6-35.5); Mean Corpuscular Hemoglobin 27.5 pg (28.0-33.3); Mean Corpuscular Volume 80.5 fL (83.0-100.0); Mean Platelet Volume 8.8 fL (9.4-12.4); Monocytes # 0.7 K/mcL (0.0-1.3); Monocytes % 6.6 %; Neutrophils # 6.9 K/mcL (1.6-8.9); Platelet Count 328 K/mcL (140-400); Red Blood Count 4.87 M/mcL (4.19-5.50); Red Cell Distribution Width 12.8 % (11.5-14.5); Segmented Neutrophils % 68.7 %
[2016-06-05 05:12] LABS: Alanine Aminotransferase 10 Units/L (0-55); Albumin 3.1 g/dL (3.5-5.0); Albumin/Globulin Ratio 1.1 (1.1-2.2); Alkaline Phosphatase 77 Units/L (38-126); Aspartate Amino Transferase 12 Units/L (5-34); BUN/Creatinine Ratio 9 (6-26); Bilirubin,Direct 0.3 mg/dL (0.0-0.5); Bilirubin,Indirect 0.5 mg/dL (0.0-1.2); Bilirubin,Total 0.8 mg/dL (0.2-1.2); Blood Urea Nitrogen 7 mg/dL (8-26); Calcium 9.1 mg/dL (8.6-10.8); Carbon Dioxide 24 mEq/L (19-29); Chloride 104 mEq/L (98-109); Globulin 2.7 g/dL (2.4-3.5); Glucose 169 mg/dL (70-99); Osmolality,Calculated 290 (280-300); Potassium 3.4 mEq/L (3.5-4.5); Sodium 139 mEq/L (136-145); Total Protein 5.8 g/dL (6.0-8.3); eGFR For African Americans > 60 (> 60); eGFR For Non-African Americans > 60 (> 60)
[2016-06-05] MEDS: Pantoprazole 40 MG VIAL IVP SCH (07:36)
--- NOTE | 2016-06-05 13:44 | Discharge Summary ---
<Rich Mayorga - Last Filed: 06/05/16 13:52> Date of Encounter: 06/05/16 Time of Encounter: 13:40 - Discharge Diagnosis (1) Hernia of anterior abdominal wall Priority: Primary Status: Acute (2) Pancreatitis Priority: Primary Status: Acute Qualifiers: Chronicity: acute Pancreatitis type: unspecified pancreatitis type Acute pancreatitis complication: unspecified Qualified Code(s): K85.90 - Acute pancreatitis without necrosis or infection, unspecified (3) Hyperglycemia due to type 2 diabetes mellitus Priority: Primary Status: Chronic Qualifiers: Diabetes mellitus residential insulin use: with residential use Qualified Code( s): E11.65 - Type 2 diabetes mellitus with hyperglycemia; Z79.4 - retirement ( current) use of insulin (4) Abdominal pain Priority: Secondary Status: Resolved Qualifiers: Abdominal location: periumbilical Qualified Code(s): R10.33 - Periumbilical pain - Discharge Medications Prescriptions: Insulin Glargine,Hum.rec.anlog [Lantus Solostar] 8 unit SQ DAILY 30 Days Pen Needle, Diabetic [Insulin Pen Needle] 1 each MC DAILY #30 dis.needle Home Medications: Insulin Glargine,Hum.rec.anlog [Lantus Solostar] 8 unit SQ DAILY 30 Days [Rx] Pen Needle, Diabetic [Insulin Pen Needle] 1 each MC DAILY #30 dis.needle [Rx] Allergies/Adverse Reactions: Allergies No Known Allergies Allergy (Verified 06/03/16 12:09) Date of admission: 06/03/16 16:04 Primary care physician: PCP NO Consults: 06/03/16 16:14 Consult to Surgery [CONS] Routine Consulting Provider: Surgery [facility] Reason for Consult: Hernia Time Notified: 16:00 Call Completed: Yes Discharging clinician: Rich Mayorga Anticipated date of discharge: 06/05/16 - Patient Status Disposition: Home, Self-Care Condition: Fair Functional capacity at discharge: independent ambulation Overall status at discharge: patient is back to baseline - Discharge Instructions Follow Up With: Renetta To CNP [Advanced Practice Nurse] - 06/12/16 11:00 am Maddie Caicedo MD [Partnered Physician] - 06/14/16 11:05 am (Patient to call when he is ready to discuss further about hernia repair.) Additional Instructions: Call Surgery when you would like to further discuss hernia repair. Follow-up with your primary care physician in next 3-5 days. Discuss your your blood sugar with your primary care provider. If you have reoccurrence of abdominal pain, erythema, edema, nausea vomiting constipation or abdominal bloating or any other concerning medical problems he should be seen in emergency department be evaluated as soon as possible. - Diet and Activity Activity: resume usual activities as tolerated Diet: diabetic diet Hospital course: Mr. Pan is a 55 year old male history of type 2 diabetes, hypertension, umbilical hernia was admitted on06/03/2016 with sharp abdominal pain radiated at 10 out of10 and tender umbilical hernia. At the time of admission he had nausea and vomiting. he was also found to have an elevated lipase and hyperglycemia with a glucose greater than 500. his A1c was greater than 14.1. Mr. Pan was admitted to the general medical floor, for further evaluation and treatment. He received IV insulin for his hyperglycemia, IV fluids and antiemetics. General surgery was consult and for evaluation of his hernia. General surgery evaluated the patient who at that time had had resolution of his pain. Mr. Pan was offered herniorrhaphy and he declined the surgery. He wishes to do the surgery at a later date outpatient. During his inpatient stay his leukocytosis resolved, glucose was controlled with subcutaneous insulin , lipase dropped from 1404-195. The patient remained asymptomatic and tolerated by mouth intake. On 06/05/2016 Mr. Pan was seen and evaluated the patient bedside. He was up ambulating in the room walking around and bending over without any signs of distress pain or discomfort. Immediately he asked if he could discharge home and that he does not have any pain. Upon evaluation he seemed to be in stable condition and was okay for discharge with close follow- up with his primary care physician to address his hyperglycemia and reevaluation. Also it was highly recommended he follow-up with general surgery for evaluation and treatment of his midline abdominal hernia. Mr. Pan said that he would see his new primary care physician in [place] and he would follow-up with general surgery. He was provided with a prescription for Lantus 8 units once a day and recommended close follow-up is primary care physician for further adjustment. Mr. Pan agrees with this plan for discharge and follow up. - Time Spent with Patient Total time spent providing and/or coordinating discharge services: - Constitutional Vitals: Temp Pulse Resp BP Pulse Ox 97.8 F 71 14 145/95 97 06/05/16 10:12 06/05/16 10:12 06/05/16 10:12 06/05/16 10:12 06/05/16 10:27 General appearance: Present: cooperative, A&O X 3, no acute distress, answers questions appropriately - Head Head exam: Present: atraumatic, normocephalic - Eye Eye exam: Present: PERRL, conjuntiva pink, sclera anicteric Pupils: Present: PERRL - Neck Neck exam general surgery: Present: supple, trachea midline. Absent: lymphadenopathy - Respiratory Respiratory exam: Present: CTAB. Absent: accessory muscle use, rales, rhonchi, wheezes - Cardiovascular Cardiovascular exam: Present: RRR, +S1, +S2. Absent: diastolic murmur, gallop, rubs, systolic murmur - GI/Abdominal Additional comments: Abdomen soft, obese with a grapefruit size umbilical hernia that was soft and mobile and nontender to palpation. The exterior skin was purplish pink, non- warm to palpation. Positive bowel sounds. - Extremities Exam Extremities exam: Present: warm, radial pulses palpable and symetrical. Absent : calf tenderness, cyanotic, pedal edema - Neurological Exam Neurological exam: Present: alert, oriented X3, no focal deficits. Absent: pronater drift, facial droop, speech deficit - Skin Skin exam: Present: dry, intact <Fei Gan - Last Filed: 06/05/16 16:48> Date of Encounter: 06/05/16 - Discharge Diagnosis (1) Pancreatitis Status: Acute Qualifiers: Chronicity: acute Pancreatitis type: unspecified pancreatitis type Acute pancreatitis complication: unspecified Qualified Code(s): K85.90 - Acute pancreatitis without necrosis or infection, unspecified (2) Hernia of anterior abdominal wall Status: Acute (3) Hyperglycemia due to type 2 diabetes mellitus Status: Chronic Qualifiers: Diabetes mellitus residential insulin use: with residential use Qualified Code( s): E11.65 - Type 2 diabetes mellitus with hyperglycemia; Z79.4 - watermaster ( current) use of insulin (4) DVT prophylaxis Status: Acute Date of admission: 06/03/16 16:04 Primary care physician: PCP NO Consults: 06/03/16 16:14 Consult to Surgery [CONS] Routine Consulting Provider: Surgery [facility] Reason for Consult: Hernia Time Notified: 16:00 Call Completed: Yes Hospital course: Mr. Pan is a 55 year old male - Time Spent with Patient Total time spent providing and/or coordinating discharge services: - Constitutional Vitals: Temp Pulse Resp BP Pulse Ox 97.8 F 71 14 145/95 97 06/05/16 10:12 06/05/16 10:12 06/05/16 10:12 06/05/16 10:12 06/05/16 10:27 - Attending Attestation I agree with the physical examination findings, assessment and plan documented by the resident Dr. Perkins. . I examined the patient independently. Patient with pancreatitis, and umbilical hernia. Follow with surgery. D/C home today.
[2016-06-06 07:24] VITALS: BP 130/81
== END 2016-06-05 15:35 | disposition home or self-care (01) | DRG 282 ==
LOC: EMEROO 11:02 → 3ANU 11:02
PROVIDERS: ADMIT Internal Medicine; ATTEND Internal Medicine

== ENCOUNTER 2017-12-16 09:00 | Inpatient (IN) ==
[2017-12-16] MEDS ORDERED: Ondansetron 4 MG/2 ML VIAL IVP ONE (09:16)
[2017-12-16] MEDS ORDERED: *HR* HYDROmorphone (PF) 1 MG/ML SYRINGE IVP ONE (09:16)
[2017-12-16] MEDS ORDERED: 0.9 % Sodium Chloride 1,000 ML IVC ONE (09:16)
--- NOTE | 2017-12-16 09:24 | Emergency Department Note ---
Disposition Clinical Impression: Incarcerated ventral hernia Disposition: Admitted As Inpatient Condition: Good Time of Disposition: 11:39 Abdominal Pain HPI - General Chief Complaint: ED Abdominal Pain Stated Complaint: ABD Pain-hernia, NV Time Seen by Provider: 12/16/17 09:11 Source: patient, family Mode of arrival: private vehicle Limitations: no limitations Nursing Notes Reviewed: Yes Vital Signs Reviewed: Yes - History of Present Illness HPI Narrative: 57 y/o male presents to the emergency department complaining of hernia pain, nausea. He states that he has a history of hernia superior to his umbilicus on his abdomen for "forever." It began small and has been enlarging over the years. She has been evaluated by Dr. Caicedo and previously elected not to undergo surgery. He was admitted in July of this year with worsened pain and incarceration of the hernia. He did not have surgery at that time due to uncontrolled blood sugars, notes state that he was to have outpatient procedure done which has never had done. Patient states that overnight pain worsened and this morning he noticed that his hernia was discolored, hard. He has associated nausea. He states that the hernia has never been reducible. Patient denies headache, vision changes, dizziness, chest pain, shortness of breath, dysuria, weakness. Pain Scale: 10 - Related Data Home Medications Medication Instructions Recorded Confirmed ALPRAZolam [Xanax 1 MG Tablet] 1 mg PO TID PRN 08/02/17 12/16/17 Gabapentin [Neurontin] 300 mg PO TID 08/02/17 12/16/17 Insulin Glargine,Hum.rec.anlog 10 unit SQ QAM 08/02/17 12/16/17 [Lantus Solostar] Pravastatin Sodium [Pravachol] 10 mg PO HS 08/02/17 12/16/17 Citalopram Hydrobromide 20 mg PO DAILY 12/16/17 12/16/17 [Citalopram HBr] Insulin Glargine [Lantus] 12 unit SQ QPM 12/16/17 12/16/17 Liraglutide [Victoza 2-Alok] 1.2 mg PO DAILY 12/16/17 12/16/17 Lisinopril [Zestril] 5 mg PO DAILY 12/16/17 12/16/17 Quetiapine Fumarate [SEROquel] 100 mg PO HS 12/16/17 12/16/17 cloNIDine HCl [CloNIDine HCl] 0.1 mg PO DAILY PRN 12/16/17 12/16/17 Allergies Allergy/AdvReac Type Severity Reaction Status Date / Time No Known Allergies Allergy Verified 12/16/17 09:06 Constitutional: Denies: fever, chills Eyes: Denies: vision change ENT ED: Denies: congestion Cardiovascular: Denies: chest pain, palpitations Respiratory: Denies: cough, dyspnea, wheezes Gastrointestinal: Reports: abdominal pain, nausea. Denies: vomiting, diarrhea, constipation, hematemesis, melena, hematochezia Genitourinary: Denies: dysuria Integumentary: Denies: rash Neurological: Denies: headache Abdominal Pain PMH - Past Medical History Medical history: Reports: CVA, diabetes, hyperlipidemia, hypertension, TIA, other Male Surgical History: Reports: no surgical history Psychiatric history: Reports: anxiety, depression - Social History Smoking status: Never smoker Alcohol use: Reports: none Drug use: Reports: none Physical Exam - General Limitations: no limitations General appearance: alert, in no apparent distress - Head Head exam: atraumatic, normocephalic, normal inspection - Eye Eye exam: Present: normal appearance, PERRL, EOMI - ENT ENT exam: normal exam, normal oropharynx, mucous membranes moist - Neck Neck exam: Present: normal inspection, full ROM, trachea midline - Chest Chest inspection: Present: normal inspection, symmetric chest wall rise - Respiratory Respiratory exam: Present: normal lung sounds bilaterally - Cardiovascular Cardiovascular exam: Present: regular rate, normal rhythm, normal heart sounds, +S1, +S2. Absent: systolic murmur, diastolic murmur - Abdominal Exam Abdominal exam: Present: soft, tenderness, guarding, normal bowel sounds, hernia (periumbilical, hard, tender, size of baseball, skin is cool and purple. no erythema). Absent: distention, rebound, rigidity - Extremities Exam Extremities exam: Present: normal inspection, full ROM. Absent: tenderness, pedal edema - Expanded Lower Extremity Exam Hip/Pelvis exam: Present: normal inspection - Neurological Exam Neurological exam: Present: alert - Psychiatric Psychiatric exam: Present: anxious - Skin Skin exam: Present: warm, dry, intact, normal color Course Course Narrative: 57 y/o male presents to the emergency department complaining of hernia pain, nausea. He states that he has a history of hernia superior to his umbilicus on his abdomen for "forever" that is non-reducible. He has been evaluated by Dr. Caicedo, as elected not to undergo surgical repair. Pain began overnight with nausea, change in color of skin over hernia. On exam pt appears in pain with baseball size abdominal hernia superior to umbilicus. Hernia is hard, cold and overlying skin is purple. BS present. Will get labwork and CT abdomen. Dispo pending results. - Reevaluation(s) Reevaluation #1: Pt states that he is more relaxed and pain-free at this time. Discussed admission. Pt hesitant but agrees. Hernia is now softer after fluids and pain meds. Skin is still purple, but is now warm. - Consultations Consultation #1: Discussed the case with Dr. Caicedo, will see the pt. She is familiar with the pt and his case. Time: 11:29 Consultation #2: Discussed the case with Dr. Garcia with the hospitalist service who has accepted the pt for admission. Time: 11:40 Vital Signs Temperature 98 F 12/16/17 09:06 Pulse Rate 64 12/16/17 09:06 Respiratory Rate 20 12/16/17 09:06 Blood Pressure 152/99 12/16/17 09:06 O2 Sat by Pulse Oximetry 98 12/16/17 09:06 Temperature 97.6 F 12/16/17 20:24 Pulse Rate 75 12/16/17 20:24 Respiratory Rate 16 12/16/17 20:24 Blood Pressure 134/80 12/16/17 20:24 O2 Sat by Pulse Oximetry 96 12/16/17 20:24 Oxygen Delivery Oxygen Delivery Room Air Abdominal Pain - Medical Records Medical records reviewed: Yes I reviewed the patient's medical records. - Lab Data Lab results reviewed: Yes I reviewed the patient's lab results. Result diagrams: 12/16/17 09:28 12/16/17 09:28 Lab Results 12/16/17 12/16/17 12/16/17 Range/Units 09:28 09:28 09:28 WBC 7.1 (4.3-11.1) K/mcL RBC 4.91 (4.19-5.50) M/mcL Hgb 13.9 (12.9-16.9) g/dL Hct 41.9 (37.5-50.1) % MCV 85.3 (83.0-100.0) fL MCH 28.3 (28.0-33.3) pg MCHC 33.2 (31.6-35.5) g/dL RDW 13.2 (11.5-14.5) % Plt Count 336 (140-400) K/mcL MPV 9.2 L (9.4-12.4) fL Immature Gran % 0.4 (0-4) % Seg Neutrophils % 71.9 % Lymphocytes % 19.2 % Monocytes % 6.6 % Eosinophils % 1.6 % Basophils % 0.3 % Neutrophils # 5.1 (1.6-8.9) K/mcL Lymphocytes # 1.4 (0.6-4.6) K/mcL Monocytes # 0.5 (0.0-1.3) K/mcL Eosinophils # 0.1 (0.0-0.6) K/mcL Basophils # 0.0 (0.0-0.2) K/mcL PT 10.6 (9.4-12.1) Seconds INR 0.9 APTT 32.0 (26.0-36.0) Seconds Sodium (136-145) mEq/L Potassium (3.5-5.1) mEq/L Chloride (98-107) mEq/L Carbon Dioxide (23-29) mEq/L BUN (6-20) mg/dL Creatinine (0.70-1.30) mg/dL Est GFR ( Amer) (> 60) Est GFR (Non-Af Amer) (> 60) BUN/Creatinine Ratio (6-26) Glucose (70-105) mg/dL Calculated Osmolality (280-300) Lactic Acid 1.8 (0.5-2.2) mmol/L Calcium (8.6-10.3) mg/dL Total Bilirubin (0.3-1.0) mg/dL Direct Bilirubin (0.0-0.2) mg/dL Indirect Bilirubin (0.0-1.2) mg/dL AST (13-39) Units/L ALT (7-52) Units/L Alkaline Phosphatase (34-104) Units/L Serum Total Protein (6.4-8.9) g/dL Albumin (3.5-5.7) g/dL Globulin (2.4-3.5) g/dL Albumin/Globulin Ratio (1.1-2.2) Amylase (29-103) Units/L Lipase (11-82) Units/L Urine Color (Yellow) Urine Clarity (Clear) Urine pH (5.0-8.0) pH Units Ur Specific [place] (1.010-1.025) Urine Protein (Neg-Trace) mg/dL Urine Glucose (UA) (Normal) mg/dL Urine Ketones (Negative) mg/dL Urine Blood (Negative) Urine Nitrite (Negative) Urine Bilirubin (Negative) Urine Urobilinogen (Normal) mg/dL Ur Leukocyte Esterase (Negative) Ur Culture Indicated? (NO) 12/16/17 12/16/17 Range/Units 09:28 10:00 WBC (4.3-11.1) K/mcL RBC (4.19-5.50) M/mcL Hgb (12.9-16.9) g/dL Hct (37.5-50.1) % MCV (83.0-100.0) fL MCH (28.0-33.3) pg MCHC (31.6-35.5) g/dL RDW (11.5-14.5) % Plt Count (140-400) K/mcL MPV (9.4-12.4) fL Immature Gran % (0-4) % Seg Neutrophils % % Lymphocytes % % Monocytes % % Eosinophils % % Basophils % % Neutrophils # (1.6-8.9) K/mcL Lymphocytes # (0.6-4.6) K/mcL Monocytes # (0.0-1.3) K/mcL Eosinophils # (0.0-0.6) K/mcL Basophils # (0.0-0.2) K/mcL PT (9.4-12.1) Seconds INR APTT (26.0-36.0) Seconds Sodium 136 (136-145) mEq/L Potassium 4.3 (3.5-5.1) mEq/L Chloride 106 (98-107) mEq/L Carbon Dioxide 23 (23-29) mEq/L BUN 15 (6-20) mg/dL Creatinine 0.96 (0.70-1.30) mg/dL Est GFR ( Amer) > 60 (> 60) Est GFR (Non-Af Amer) > 60 (> 60) BUN/Creatinine Ratio 16 (6-26) Glucose 166 H (70-105) mg/dL Calculated Osmolality 287 (280-300) Lactic Acid (0.5-2.2) mmol/L Calcium 9.0 (8.6-10.3) mg/dL Total Bilirubin 0.4 (0.3-1.0) mg/dL Direct Bilirubin 0.1 (0.0-0.2) mg/dL Indirect Bilirubin 0.3 (0.0-1.2) mg/dL AST 16 (13-39) Units/L ALT 8 (7-52) Units/L Alkaline Phosphatase 67 (34-104) Units/L Serum Total Protein 6.8 (6.4-8.9) g/dL Albumin 4.2 (3.5-5.7) g/dL Globulin 2.6 (2.4-3.5) g/dL Albumin/Globulin Ratio 1.6 (1.1-2.2) Amylase 101 (29-103) Units/L Lipase 60 (11-82) Units/L Urine Color Yellow (Yellow) Urine Clarity Clear (Clear) Urine pH 5.0 (5.0-8.0) pH Units Ur Specific [place] 1.026 H (1.010-1.025) Urine Protein Negative (Neg-Trace) mg/dL Urine Glucose (UA) 100 H (Normal) mg/dL Urine Ketones Negative (Negative) mg/dL Urine Blood Negative (Negative) Urine Nitrite Negative (Negative) Urine Bilirubin Negative (Negative) Urine Urobilinogen Normal (Normal) mg/dL Ur Leukocyte Esterase Negative (Negative) Ur Culture Indicated? NO (NO) - Radiology Data Radiology results reviewed: Yes I reviewed the patient's radiology results. Abdomen/Pelvis CT 12/16/17 09:19 IMPRESSION: 1. Redemonstration of a fat and small bowel containing ventral hernia. There has been mild interval increase in the degree of fluid filled distention and surrounding fat stranding of the small bowel loop within the ventral hernia. CT findings are concerning for entrapment of the small bowel loop. Surgical consultation is recommended. 2. Partial imaging of a 5 mm left upper lobe lung nodule for which nonemergent noncontrast CT of the chest is recommended for further evaluation. D/ / 12/16/2017 11:07:15 Hunter Najera / mario Interpreting Provider: Hunter Najera Attestation Statement - Attestation Attestation: Patient was seen with resident physician. I reviewed the history, physical, assessment and plan, and agree with the findings. I also personally evaluated this patient and had [id number] time with this patient. 57-year-old male presents emergency Department chief complaint of abdominal hernia. Patient has a history of same. He says he has a reducible hernia in the abdomen just above his umbilicus. He said he has been hospitalized for this before. He has been seen by surgery Dr. Badillo. He says that he is not been willing to have the operation to have a corrected. Pain got worse this morning ultimately prompted his visit. Also is having some nausea. No diarrhea. Review of systems as above remainder negative. Physical exam vital signs are stable. ENT is unremarkable. Heart regular rhythm and rate. Lungs clear. Abdomen is soft tender on the herniation itself it is softball size just above the umbilicus and nonreducible tender to palpation. Bowel sounds were positive. Extremities unremarkable neurologically intact. Skin no rashes. Psych normal. ED course we will do CT scan the abdomen and pelvis to rule out incarceration. We will also get lab test treat the patient's nausea and contact surgery once we have the results to determine further course of action. CT scan was suggestive of incarcerated hernia and surgical consultation was recommended. We spoke with surgery. They agreed to see the patient recommended admission to the hospitalist service. He was then admitted to the hospital service after we notified them. He was later taken to the floor for further evaluation and treatment and possible surgical intervention. Hemodynamically the patient remained stable through stay in the emergency department. Agree with resident physician assessment and plan.
[2017-12-16 09:42] LABS: Basophils % 0.3 %; Eosinophils # 0.1 K/mcL (0.0-0.6); Eosinophils % 1.6 %; Hematocrit 41.9 % (37.5-50.1); Hemoglobin 13.9 g/dL (12.9-16.9); Immature Granulocytes % 0.4 % (0-4); Lymphocytes # 1.4 K/mcL (0.6-4.6); Lymphocytes % 19.2 %; Mean Corpuscular HGB Conc 33.2 g/dL (31.6-35.5); Mean Corpuscular Hemoglobin 28.3 pg (28.0-33.3); Mean Corpuscular Volume 85.3 fL (83.0-100.0); Mean Platelet Volume 9.2 fL (9.4-12.4); Monocytes # 0.5 K/mcL (0.0-1.3); Monocytes % 6.6 %; Neutrophils # 5.1 K/mcL (1.6-8.9); Platelet Count 336 K/mcL (140-400); Red Blood Count 4.91 M/mcL (4.19-5.50); Red Cell Distribution Width 13.2 % (11.5-14.5); Segmented Neutrophils % 71.9 %
[2017-12-16 09:48] LABS: INR 0.9; Prothrombin Time 10.6 Seconds (9.4-12.1)
[2017-12-16 10:01] LABS: Alanine Aminotransferase 8 Units/L (7-52); Albumin 4.2 g/dL (3.5-5.7); Albumin/Globulin Ratio 1.6 (1.1-2.2); Alkaline Phosphatase 67 Units/L (34-104); Amylase 101 Units/L (29-103); BUN/Creatinine Ratio 16 (6-26); Bilirubin,Direct 0.1 mg/dL (0.0-0.2); Bilirubin,Indirect 0.3 mg/dL (0.0-1.2); Bilirubin,Total 0.4 mg/dL (0.3-1.0); Blood Urea Nitrogen 15 mg/dL (6-20); Carbon Dioxide 23 mEq/L (23-29); Chloride 106 mEq/L (98-107); Globulin 2.6 g/dL (2.4-3.5); Glucose 166 mg/dL (70-105); Lipase 60 Units/L (11-82); Osmolality,Calculated 287 (280-300); Potassium 4.3 mEq/L (3.5-5.1); Sodium 136 mEq/L (136-145); Total Protein 6.8 g/dL (6.4-8.9); eGFR For Non-African Americans > 60 (> 60)
[2017-12-16 10:07] LABS: Aspartate Amino Transferase 16 Units/L (13-39)
[2017-12-16 10:54] LABS: Bilirubin,Urine Negative (Negative); Blood,Urine Negative (Negative); Clarity,Urine Clear (Clear); Color,Urine Yellow (Yellow); Glucose,Urine (UA) 100 mg/dL (Normal); Ketones,Urine Negative (Negative); Leukocyte Esterase,Urine Negative (Negative); Nitrite,Urine Negative (Negative); Protein,Urine Negative (Neg-Trace); Specific Gravity,Urine 1.026 (1.010-1.025); Urobilinogen,Urine Normal (Normal)
--- NOTE | 2017-12-16 11:54 | General Surgery Consult Note ---
<Melissa Marie E - Last Filed: 12/16/17 11:47> Date of Encounter: 12/16/17 Time of Encounter: 11:47 Assessment and Plan (1) Umbilical hernia, incarcerated Current Visit: No Status: Chronic Previous admission in July for umbilical hernia. At that time the patient did not have the hernia repaired. Was advised to be done on an outpatient basis. Due to recurrence of pain of the umbilical hernia,we recommended the patient has this umbilical hernia surgically repaired This does not have to be during this admission, can be done as an outpatient. Supportive care as per primary Surgery will continue to follow. History of Present Illness Consult date: 12/16/17 Reason for consult: other (Umbilical hernia pain) Requesting physician: Domi Mayorga History of present illness: Mr. Pan is a 57-year-old male who presented to the ED complaining of hernia pain nausea and vomiting. He states that he has had this hernia forever, and it just started hurting today. He states the hernia was about twice the size earlier today. He also said it was hard to the touch. He states he is in 10 out of 10 pain, had nausea and vomiting this morning. He states he has had a bowel movement today and has been able to pass gas. He states he was going to have this repaired, but he had to get his A1c under control first, this was after being admitted in July of this year for pain and incarceration of the hernia. He denies fever, chills, chest pain, shortness of breath. Past Med Surg Social Fam HX - Past Medical History Medical history: CVA, diabetes, hyperlipidemia, hypertension, TIA, other Additional medical history: hernia Psychiatric history: anxiety, depression - Past Surgical History Surgical History: other - Social History Smoking Status: Never smoker Smokeless Tobacco Status: No Alcohol use: none Drug use: none - Family History Mother Living Status: Hx Family Endocrine Disorder: Yes (Diabetes Mellitus) Father Living Status: Sister Living Status: Medications and Allergies ALPRAZolam [Xanax 1 MG Tablet] 1 mg PO TID PRN 08/02/17 [History] Gabapentin [Neurontin] 300 mg PO TID 08/02/17 [History] Insulin Glargine,Hum.rec.anlog [Lantus Solostar] 10 unit SQ QAM 08/02/17 [ History] Pravastatin Sodium [Pravachol] 10 mg PO HS 08/02/17 [History] Citalopram Hydrobromide [Citalopram HBr] 20 mg PO DAILY 12/16/17 [History] Insulin Glargine [Lantus] 12 unit SQ QPM 12/16/17 [History] Liraglutide [Victoza 2-Alok] 1.2 mg PO DAILY 12/16/17 [History] Lisinopril [Zestril] 5 mg PO DAILY 12/16/17 [History] Quetiapine Fumarate [SEROquel] 100 mg PO HS 12/16/17 [History] cloNIDine HCl [CloNIDine HCl] 0.1 mg PO DAILY PRN 12/16/17 [History] 3 Allergy/AdvReac Type Severity Reaction Status Date / Time No Known Allergies Allergy Verified 12/16/17 09:06 Review of Systems All systems PM: The remainder of the systems were reviewed and are negative - Constitutional no chills, no fatigue, no fever(s), no weight loss - Cardiovascular no chest pain, no irregular heart rhythm, no radiating jaw, neck or arm pain - Respiratory no cough, no dyspnea on exertion, no chest congestion - Gastrointestinal as per HPI General Surgery Exam Initial Vital Signs Temp Pulse Resp BP Pulse Ox 98 F 64 20 152/99 98 12/16/17 09:06 12/16/17 09:06 12/16/17 09:06 12/16/17 09:06 12/16/17 09:06 - General physical appearance well developed, well nourished, moderate distress - Respiratory normal expansion, normal respiratory effort, clear to auscultation - Cardiovascular Cardiovascular exam: Present: RRR, no murmurs/rubs/gallops - Abdomen Abdomen general surgery: Present: bowel sounds present, soft, non tender Hernia: Present: umbilical (Approximately 3" x 3". Soft, nontender, skin is pink over the hernia, same temperature as surrounding skin.) Exam Initial Vital Signs Temp Pulse Resp BP Pulse Ox 98 F 64 20 152/99 98 12/16/17 09:06 12/16/17 09:06 12/16/17 09:06 12/16/17 09:06 12/16/17 09:06 Results - Labs 12/16/17 09:28 12/16/17 09:28 Abnormal lab results MPV 9.2 fL (9.4-12.4) L 12/16/17 09:28 Glucose 166 mg/dL (70-105) H 12/16/17 09:28 Ur Specific [place] 1.026 (1.010-1.025) H 12/16/17 10:00 Urine Glucose (UA) 100 mg/dL (Normal) H 12/16/17 10:00 Diabetes panel 12/16/17 Range/Units 09:28 Sodium 136 (136-145) mEq/L Potassium 4.3 (3.5-5.1) mEq/L Chloride 106 (98-107) mEq/L Carbon Dioxide 23 (23-29) mEq/L BUN 15 (6-20) mg/dL Creatinine 0.96 (0.70-1.30) mg/dL Glucose 166 H (70-105) mg/dL Calcium 9.0 (8.6-10.3) mg/dL AST 16 (13-39) Units/L ALT 8 (7-52) Units/L Alkaline Phosphatase 67 (34-104) Units/L Albumin 4.2 (3.5-5.7) g/dL Calcium panel 12/16/17 Range/Units 09:28 Calcium 9.0 (8.6-10.3) mg/dL Albumin 4.2 (3.5-5.7) g/dL Pituitary panel 12/16/17 Range/Units 09:28 Sodium 136 (136-145) mEq/L Potassium 4.3 (3.5-5.1) mEq/L Chloride 106 (98-107) mEq/L Carbon Dioxide 23 (23-29) mEq/L BUN 15 (6-20) mg/dL Creatinine 0.96 (0.70-1.30) mg/dL Glucose 166 H (70-105) mg/dL Calcium 9.0 (8.6-10.3) mg/dL Adrenal panel 12/16/17 Range/Units 09:28 Sodium 136 (136-145) mEq/L Potassium 4.3 (3.5-5.1) mEq/L Chloride 106 (98-107) mEq/L Carbon Dioxide 23 (23-29) mEq/L BUN 15 (6-20) mg/dL Creatinine 0.96 (0.70-1.30) mg/dL Glucose 166 H (70-105) mg/dL Calcium 9.0 (8.6-10.3) mg/dL Total Bilirubin 0.4 (0.3-1.0) mg/dL AST 16 (13-39) Units/L ALT 8 (7-52) Units/L Alkaline Phosphatase 67 (34-104) Units/L Albumin 4.2 (3.5-5.7) g/dL All other labs normal. Consult Discharge Plan - Plan <LindaMaddie martinez [place] - Last Filed: 12/16/17 14:20> Date of Encounter: 12/16/17 Assessment and Plan (1) Incarcerated ventral hernia Current Visit: Yes Status: Chronic discussed with patient and his daughter (TORI mckeon) his hernia defect is not too large about 3 x 2 cm. patient would like to have hernia repaired. he has not had anything to eat today , he tried to drink liquid around 8 am and threw it up will plan robotic ventral hernia repair with mesh, risks and benefits discussed and he wishes to proceed npo ivf hydration prn pain control not on any blood thinners inr wnl History of Present Illness History of present illness: Patient is a 57 yo male well known to me for his ventral hernia. He states he started having sharp pain at the hernia site this am. The hernia became firm and tender. He was brought to the ED and CT was done showing his persistent hernia with concern for incarceration. After ice was applied to the hernia it became softer and less tender. He is still passing flatus and had a bm today. He was supposed to have his hernia fixed two other times but canceled each time. He states since he is here and hasnt eaten anything today he would like it repaired. He denies recent SOB, chest pain, ever having an [place] Past Med Surg Social Fam HX - Past Medical History Medical history: CVA, diabetes, hyperlipidemia, hypertension, other - Past Surgical History Surgical History: no surgical history - Social History Current living situation: With Family Review of Systems All systems PM: reviewed and no additional remarkable complaints except as stated All systems PM: The remainder of the systems were reviewed and are negative General Surgery Exam Initial Vital Signs Temp Pulse Resp BP Pulse Ox 98 F 64 20 152/99 98 12/16/17 09:06 12/16/17 09:06 12/16/17 09:06 12/16/17 09:06 12/16/17 09:06 - General physical appearance well developed, well nourished, no distress - Eyes PERRL, normal ocular movement - ENT normal mucosa, normocephalic - Neck trachea midline - Respiratory normal expansion, clear to auscultation - Cardiovascular Cardiovascular exam: Present: RRR - Abdomen Abdomen general surgery: Present: bowel sounds present, soft, non tender Hernia: Present: incarcerated, umbilical (ventral hernia) - Integumentary Integumentary general surgery: Present: warm and dry - Neurologic Present: CN 2-12 grossly intact - Musculoskeletal Present: normal posture - Psychiatric Psychiatric general surgery: Present: A&Ox3, speech is normal Exam Initial Vital Signs Temp Pulse Resp BP Pulse Ox 98 F 64 20 152/99 98 12/16/17 09:06 12/16/17 09:06 12/16/17 09:06 12/16/17 09:06 12/16/17 09:06 Results - Labs 12/16/17 09:28 12/16/17 09:28 Abnormal lab results MPV 9.2 fL (9.4-12.4) L 12/16/17 09:28 Glucose 166 mg/dL (70-105) H 12/16/17 09:28 Ur Specific [place] 1.026 (1.010-1.025) H 12/16/17 10:00 Urine Glucose (UA) 100 mg/dL (Normal) H 12/16/17 10:00 All other labs normal. - Imaging CT scan - abdomen: report reviewed, image reviewed CT scan - pelvis: report reviewed, image reviewed - Attending Attestation I examined this patient and my medical decision-making was reviewed with the Resident Physician. I agree with the documented findings, disposition and treatment plan as described except to the extent set forth below.
--- NOTE | 2017-12-16 13:27 | Internal Med History&Physical ---
Date of Encounter: 12/16/17 Time of Encounter: 13:11 Internal Medicine - H&P: HPI Chief complaint: Abdominal pain Admitted From: Home Plans for Post Hospital Care: Home History of present illness: Mr. Pan is a 57 year old male with a past medical history of umbilical hernia , uncontrolled diabetes mellitus type 2, hypertension, and TIA who presented with a chief complaint of abdominal pain to the emergency department. Patient previously admitted for umbilical hernia and was told to follow-up with surgery to schedule repair however the patient never followed up. Early this morning the patient started developing abdominal pain with nausea and vomiting. The patient states that his hernia was "hard as a rock" an incredibly painful and presented to the emergency department. The patient states that the pain and swelling persisted for approximately 3 hours. The patient states that he had a bowel movement this morning and continues to pass gas. In the emergency department the patient had a CT of his abdomen performed which revealed redemonstration of ventral hernia with increase in distention and surrounding fat stranding of the small bowel loop within the hernia concerning for entrapment of the small bowel loop. The patient will be placed in observation for surgical evaluation and supportive care. At the time of my evaluation the patient states that his abdominal pain is nearly resolved and that his hernia is about than size that it normally is. Per the ER notes the patient's hernia was very hard with cool purple skin upon presentation however the hernia is now very soft and pink with warm skin that matches surrounding tissues. Patient denies any fever, chest pain, shortness of breath, current abdominal pain, current nausea, current vomiting, or diarrhea. Past Med Surg Social Fam HX - Past Medical History Medical history: CVA, diabetes, hyperlipidemia, hypertension, TIA, other Additional medical history: hernia Psychiatric history: anxiety, depression - Past Surgical History Surgical History: other - Social History Smoking Status: Never smoker Smokeless Tobacco Status: No Alcohol use: none Drug use: none - Family History Mother Living Status: Hx Family Endocrine Disorder: Yes (Diabetes Mellitus) Father Living Status: Sister Living Status: Internal Medicine - H&P: Meds ALPRAZolam [Xanax 1 MG Tablet] 1 mg PO TID PRN 08/02/17 [History] Gabapentin [Neurontin] 300 mg PO TID 08/02/17 [History] Insulin Glargine,Hum.rec.anlog [Lantus Solostar] 10 unit SQ QAM 08/02/17 [ History] Pravastatin Sodium [Pravachol] 10 mg PO HS 08/02/17 [History] Citalopram Hydrobromide [Citalopram HBr] 20 mg PO DAILY 12/16/17 [History] Insulin Glargine [Lantus] 12 unit SQ QPM 12/16/17 [History] Liraglutide [Victoza 2-Alok] 1.2 mg PO DAILY 12/16/17 [History] Lisinopril [Zestril] 5 mg PO DAILY 12/16/17 [History] Quetiapine Fumarate [SEROquel] 100 mg PO HS 12/16/17 [History] cloNIDine HCl [CloNIDine HCl] 0.1 mg PO DAILY PRN 12/16/17 [History] 3 Allergy/AdvReac Type Severity Reaction Status Date / Time No Known Allergies Allergy Verified 12/16/17 09:06 All Systems PM: A 10-system review of systems was performed and is negative for pertinent findings except as documented above in the HPI. Review of systems: 10 Point review of systems is obtained and is otherwise negative other than described in history of present illness - Constitutional Vitals: Temp Pulse Resp BP Pulse Ox 98 F 57 17 105/77 99 12/16/17 09:13 12/16/17 10:59 12/16/17 10:59 12/16/17 10:59 12/16/17 10:59 Exam: Constitutional: No acute distress, Alert Psych: AAO x 3, pleasant and cooperative HEENT: NCAT, EOMI Neck: supple Cardio: regular rate and rhythm, +s1s2, no murmurs/rubs/gallops Resp: clear to ascultation bilaterally Abd: soft, non tender/non distended, positive bowel sounds, no gaurding/reboud/ ridgitity, patient has umbilical hernia approximately 4" x 3" that is soft nontender; skin overlying hernia is pink and warm with no significant difference from surrounding skin Extremities: no clubbing/cyanosis/edema appreciated Neuro: no focal deficits appreciated Lymph: no cervical/supraclavicular adenopahty apprecitated Internal Med - H&P Results - Labs CBC & Chem 7: 12/16/17 09:28 12/16/17 09:28 - Assessment and plan (1) Umbilical hernia, incarcerated Current Visit: Yes Status: Chronic Assessment and plan: Patient presented with abdominal pain nausea and vomiting and found to have incarcerated hernia -CT of the abdomen revealed: Redemonstration of a fat and small bowel containing ventral hernia. There has been mild interval increase in the degree of fluid filled distention and surrounding fat stranding of the small bowel loop within the ventral hernia. CT findings are concerning for entrapment of the small bowel loop. Surgical consultation is recommended. -Initially skin over hernia was purplish and cool per emergency documentation -Currently hernia back to normal size soft, nontender, and pink with skin temperature of surrounding skin -Lactic acid WNL -General surgery consulted -Supportive care -Clear liquid diet for now -If stable overnight, anticipate discharge home tomorrow with outpatient follow up for hernia repair (2) Abdominal pain Current Visit: Yes Status: Resolved Assessment and plan: Due to incarcerated hernia -Please see above -Resolved Qualifiers: Abdominal location: periumbilical Qualified Code(s): R10.33 - Periumbilical pain (3) Lung nodule seen on imaging study Current Visit: Yes Status: Acute Assessment and plan: -5 mm left upper lobe nodule found incidentally -will need outpatient follow-up (4) Depression Current Visit: No Status: Chronic Assessment and plan: Continue home medications Qualifiers: Depression Type: other depression Qualified Code(s): F32.89 - Other specified depressive episodes (5) Hyperglycemia due to type 2 diabetes mellitus Current Visit: Yes Status: Chronic Assessment and plan: -Patient and family state that he is not using his right toes or other insulin as currently not using anything for diabetes -Last A1c was over 11% -We will start long-acting Levemir based on her weight -We will add sliding scale coverage -Encouraged compliance with prescribed medications -Monitor Accu-Cheks Qualifiers: 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 insulin use: with saddle and side wire stitcher use Qualified Code( s): E11.65 - Type 2 diabetes mellitus with hyperglycemia; 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 (6) Hyperlipidemia Current Visit: Yes Status: Chronic Assessment and plan: Continue home medications Qualifiers: Hyperlipidemia type: unspecified Qualified Code(s): E78.5 - Hyperlipidemia , unspecified (7) Hypertension Current Visit: Yes Status: Chronic Assessment and plan: -Continue home medications -blood pressure currently stable Qualifiers: Hypertension type: essential hypertension Qualified Code(s): I10 - Essential (primary) hypertension (8) DVT prophylaxis Current Visit: Yes Status: Acute Assessment and plan: Heparin subcutaneous - Time Spent With Patient Total time spent is greater than 50% in coordination of care (as documented) at patient's floor/unit and/or counseling patient: 25 - 35 minutes
[2017-12-16] MEDS ORDERED: Acetaminophen 325 MG TABLET PO PRN (13:46)
[2017-12-16] MEDS ORDERED: Naloxone 0.4 MG/ML INJ IVP PRN (13:46)
[2017-12-16] MEDS ORDERED: Dextrose Gel 15 GM/37.5 ML TUBE PO PRN ×2 (13:50)
[2017-12-16] MEDS ORDERED: *HR* Dextrose 50 % in Water (Syg) 50 ML SYRINGE IVP PRN (13:50)
[2017-12-16] MEDS ORDERED: D5% in Water 1,000 ML IVC PRN (13:50)
--- NOTE | 2017-12-16 13:54 | Anesthesia Evaluation PreOp ---
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: TIA Other Medical History: Diabetes Type II Anesthesia History: Past Anesthesia (no prior surgery) Alcohol Use: none Drug use: none Medications and Allergies ALPRAZolam [Xanax 1 MG Tablet] 1 mg PO TID PRN 08/02/17 [History] Gabapentin [Neurontin] 300 mg PO TID 08/02/17 [History] Insulin Glargine,Hum.rec.anlog [Lantus Solostar] 10 unit SQ QAM 08/02/17 [ History] Pravastatin Sodium [Pravachol] 10 mg PO HS 08/02/17 [History] Citalopram Hydrobromide [Citalopram HBr] 20 mg PO DAILY 12/16/17 [History] Insulin Glargine [Lantus] 12 unit SQ QPM 12/16/17 [History] Liraglutide [Victoza 2-Alok] 1.2 mg PO DAILY 12/16/17 [History] Lisinopril [Zestril] 5 mg PO DAILY 12/16/17 [History] Quetiapine Fumarate [SEROquel] 100 mg PO HS 12/16/17 [History] cloNIDine HCl [CloNIDine HCl] 0.1 mg PO DAILY PRN 12/16/17 [History] 3 Allergy/AdvReac Type Severity Reaction Status Date / Time No Known Allergies Allergy Verified 12/16/17 09:06 - Meds/Allergy Pre-op Review Medications Reviewed: Yes Allergies Reviewed: Yes Beta Blockers on Current Med List: No Anesthesia Results - Labs 12/16/17 09:28 12/16/17 09:28 - Imaging EKG: report reviewed (08/02/2017 SINUS RHYTHM WITH SINUS ARRHYTHMIA) Additional studies: 06/30/2015 Echo LVEF > 75% mild LV diastolic dysfunction normal RV structure and function no significant valvular dysfunction unable to estimate RVSP due to lack of TR jet no evidence of intracardiac shunting with agitated saline contrast Anesthesia Exam Vital Signs/O2 Sat, Most Current Temp Pulse Resp BP Pulse Ox 98 F 57 17 105/77 99 12/16/17 09:13 12/16/17 10:59 12/16/17 10:59 12/16/17 10:59 12/16/17 10:59 Height: 5'6''/1.68m Weight: 205 lbs/93.3 kg NPO (# of Hours): 8 Pain Scale: 0 Pain Scale Used: Numeric (1 - 10) - HEENT Pupil (Motor): EOMI Mallampati: III Teeth: Normal, Missing, Prosthesis Denture Type: Upper: Partial Oral Opening: Greater than 3 - SHEARER SCREEN MEASURER AND TRIMMER LOC: Oriented 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
[2017-12-16] MEDS ORDERED: *HR* Heparin 5,000 UNIT/ML VIAL SQ SCH (14:00)
[2017-12-16] MEDS ORDERED: ALPRAZolam 1 MG TABLET PO PRN (14:02)
[2017-12-16] MEDS ORDERED: *HR* FentaNYL (PF) 100 MCG/2 ML VIAL ONE ×2 (14:02→16:47)
[2017-12-16] MEDS ORDERED: *HR* Propofol 200 MG/20 ML VIAL IVP ONE (14:03)
[2017-12-16] MEDS ORDERED: *HR* Midazolam HCl 2 MG/2 ML VIAL ONE (14:03)
[2017-12-16] MEDS ORDERED: *HR* Rocuronium Bromide 50 MG/5 ML VIAL ONE (14:04)
[2017-12-16] MEDS ORDERED: Lidocaine -MPF 2% 2 ML VIAL ONE (14:04)
[2017-12-16] MEDS ORDERED: *HR* Succinylcholine 200 MG/10 ML VIAL IVP ONE (14:04)
[2017-12-16] MEDS ORDERED: Ondansetron 4 MG/2 ML VIAL ONE (14:06)
[2017-12-16] MEDS ORDERED: Lidocaine -MPF 4% 5 ML AMPUL ONE (14:07)
[2017-12-16] MEDS ORDERED: CefOXitin 2,000 MG VIAL ONE (14:09)
[2017-12-16] MEDS ORDERED: *HR* OxyCODONE Immed Rel 5 MG TABLET PO PRN (14:46)
[2017-12-16] MEDS ORDERED: Acetaminophen IV 1,000 MG/100 ML INFUS..BTL ONE (14:48)
[2017-12-16] MEDS ORDERED: cefOXitin 2,000 MG in Water for inj. (sterile) 20 ML 20 ML IVP ONE (15:45)
[2017-12-16] MEDS ORDERED: Neostigmine Methylsulfate 3 MG/3 ML SYRINGE ONE (16:48)
--- NOTE | 2017-12-16 17:35 | Operative Note ---
Date of procedure: 12/16/17 Pre-op diagnosis: incarcerated ventral hernia Post-op diagnosis: same Procedure: robotic repair incarcerated ventral hernia repair with mesh Complications: none immediate Anesthesia: HERNAN, local Surgeon: Maddie Caicedo Was there an assistant district attorney present: Yes Charge Machine Operator: Cindy Weinberg Estimated blood loss (cc): 5 Specimen: none Condition: stable Disposition: PACU Procedure in Detail: Patient was brought into the operating suite and placed supine on the operating table. Sign in was performed and everyone was in agreement. Anesthesia was induced and patient was endotracheally intubated by anesthesia without incident. The bilateral arms were tucked at the patient's side. The abdomen was prepped and draped in the usual sterile fashion. Timeout was performed again everyone was in agreement. Her quadrant incision through the skin into the subcutaneous tissue with an 11 blade was made and a Veress needle was placed through this and a water drop test confirmed placement and the abdomen was insufflated. We entered the abdomen in the left upper quadrant incision site with a 5 mm 0 degree laparoscope on a 5 mm XL trocar. The area under entry was visualized there was no apparent bowel injury and no bleeding. A 12 mm port was placed in the left lateral abdominal position under direct visualization after first incising the skin with an 11 blade. A left lower quadrant 8 mm port was placed under direct visualization after first incising the skin with an 11 blade. After upper quadrant 5 mm port was exchanged for a 8 mm port. Abdomen. 9 mm round ventral ex mesh was placed into the abdominal cavity after a 2-0 Vicryl stitch was tied to the center of the mesh. TWo 0 Vicryl V-LOC absorbable stitches were placed into the abdominal cavity. The robot was docked. Omentum was from the ventral hernia along with external pressure from the assistant district attorney. Sharp heated scissors were used to take down the hernia sac. There was advertent entry through the skin while taking down the hernia sac. A portion of omentum was devitalized during dissection and this was transected off the viable omentum with heated scissors and placed at the right abdomen with the resected hernia sac. The fascial defect was closed with a running 0 Vicryl V LOC absorbable stitch. Using a laparoscopic suture passer the 2-0 Vicryl stitch tied to the mesh was pulled up through the abdominal cavity through near the middle of the closed hernia defect. This with with a hemostat. The mesh was secured to the anterior abdominal wall with a 0V LOC Vicryl absorbable running stitch. The suture was removed from the abdominal cavity. The hernia sac and devitalized omentum was removed from the abdominal cavity with 2 laparoscopic Endo Catch bags. The air was evacuated from the abdominal cavity and the trochars were removed after the robot was undocked. The 12 mm lateral port site was closed at the abdominal wall with 2 separate 0 Vicryl [id number] stitches. 0.5% lidocaine was injected at the 3 lateral port sites. The skin was closed with 4-0 Monocryl running subcuticular stitches. The patient's hernia had previously significantly stretched out the skin just above the umbilicus, like a proboscis. This redundant skin along with the area of inadvertent injury to the skin at the umbilicus was resected in an elliptical fashion with a 15 blade. Any bleeding points were stopped with the Bovie. The subcutaneous tissue was reapproximated with 3-0 Vicryl interrupted stitches. The skin was closed with 4-0 Monocryl running subcuticular stitch. Dermabond was applied to all wounds. And instrument counts are correct at the end of the case. The patient tolerated the procedure well. He was awoken in the operating suite and extubated by anesthesia without incident. He taken to PACU in stable condition.
[2017-12-16] MEDS: *HR* FentaNYL (PF) 100 MCG/2 ML VIAL IVP PRN ×2 (17:48→17:54)
--- NOTE | 2017-12-16 18:25 | Anesthesia Evaluation Post Op ---
Date of Encounter: 12/16/17 Time of Encounter: 18:24 - Vital Signs Vital Signs: Vital Signs/O2 Sat/Glucose, Most Recent Temp Pulse Resp BP Pulse Ox 97.7 F 64 14 123/88 94 12/16/17 18:00 12/16/17 18:10 12/16/17 18:10 12/16/17 18:10 12/16/17 18:10 Blood Glucose* 119 - Lungs Lungs: Clear Ascult./Percussion - Airway Airway: Non-obstructed - Cardiovascular Regular Rate - Mental Status Mental Status: Alert & Oriented, Answers Appropriately - Pain Pain Scale: 6 Pain Scale used: Numeric (1 - 10) - Nausea Vomiting Nausea Vomiting: Not Present - Hydration Hydration: NPO, Has not voided - Discharge PostOp Status: Transfer Patient to floor
[2017-12-16] MEDS: Insulin LISPRO 300 UNITS/3 ML VIAL SQ SCH ×2 (18:35→21:08)
[2017-12-16] MEDS: Gabapentin 300 MG CAPSULE PO SCH ×2 (18:35→21:09)
[2017-12-16] MEDS ORDERED: *HR* OxyCODONE/APAP 5/325 TABLET PO PRN (18:43)
[2017-12-16] MEDS: OXYCODONE Oral CONC 10 MG/0.5 ML ORAL.SYG SL PRN (19:01)
[2017-12-16] MEDS: 0.9 % Sodium Chloride 1,000 ML IVC SCH (19:36)
[2017-12-16] MEDS: Insulin DETEMIR 100 UNIT/ML X5UNITS SQ SCH (21:09)
[2017-12-16] MEDS: *HR* HYDROcodone/Acet 5/325 mg TABLET PO PRN (21:15)
[2017-12-17] MEDS: OXYCODONE Oral CONC 10 MG/0.5 ML ORAL.SYG SL PRN ×2 (03:51→13:41)
[2017-12-17 04:52] LABS: Basophils % 0.1 %; Hematocrit 36.7 % (37.5-50.1); Immature Granulocytes % 0.5 % (0-4); Lymphocytes # 0.8 K/mcL (0.6-4.6); Lymphocytes % 5.5 %; Mean Corpuscular Hemoglobin 27.7 pg (28.0-33.3); Mean Platelet Volume 9.3 fL (9.4-12.4); Monocytes # 0.9 K/mcL (0.0-1.3); Neutrophils # 13.1 K/mcL (1.6-8.9); Platelet Count 357 K/mcL (140-400); Red Blood Count 4.37 M/mcL (4.19-5.50); Red Cell Distribution Width 13.4 % (11.5-14.5); Segmented Neutrophils % 87.9 %
[2017-12-17 04:58] LABS: Hemoglobin 12.1 g/dL (12.9-16.9)
[2017-12-17 05:09] LABS: BUN/Creatinine Ratio 14 (6-26); Blood Urea Nitrogen 12 mg/dL (6-20); Calcium 8.4 mg/dL (8.6-10.3); Carbon Dioxide 25 mEq/L (23-29); Chloride 104 mEq/L (98-107); Glucose 142 mg/dL (70-105); Osmolality,Calculated 282 (280-300); Potassium 4.7 mEq/L (3.5-5.1); Sodium 135 mEq/L (136-145); eGFR For Non-African Americans > 60 (> 60)
[2017-12-17] MEDS: *HR* Heparin 5,000 UNIT/ML VIAL SQ SCH ×2 (05:50→17:25)
[2017-12-17] MEDS: 0.9 % Sodium Chloride 1,000 ML IVC SCH (06:55)
[2017-12-17] MEDS: Gabapentin 300 MG CAPSULE PO SCH ×3 (07:27→20:28)
[2017-12-17] MEDS: Insulin LISPRO 300 UNITS/3 ML VIAL SQ SCH ×4 (07:27→20:29)
[2017-12-17] MEDS ORDERED: cloNIDine HCl 0.1 MG TABLET PO PRN (07:40)
[2017-12-17] MEDS: (Liraglutide [Victoza 2-Pak] 1.2 MG) PO SCH (08:10)
--- NOTE | 2017-12-17 10:05 | General Surgery Progress Note ---
<Jessica Lazcano Sheree - Last Filed: 12/17/17 10:03> Date of Encounter: 12/17/17 Time of Encounter: 10:00 - Assessment and Plan (1) Umbilical hernia, incarcerated Current Visit: Yes Status: Chronic POD #1 robotic repair incarcerated ventral hernia repair with mesh with Dr. Caicedo Advance to regular diet Saline lock Supportive care Abdominal binder Ambulate hallways TID with assistance IS every 1 hour while awake Repeat am labs- CBC (2) DVT prophylaxis Current Visit: Yes Status: Acute Heparin 5,000 units SQ twice daily for DVT prophylaxis Ambulate hallways TID with assistance Subjective Patient reports: no new complaints, feels better, still having pain (post surgical pain), voiding w/o difficulty, flatus, afebrile Objective Vital Signs - Last 8 Hours Temp Pulse Resp BP Pulse Ox 12/17/17 08:33 93 12/17/17 06:57 98.2 F 77 16 116/70 93 12/17/17 04:58 97.7 F 93 15 128/72 95 Intake and Output 12/16/17 12/17/17 12/17/17 23:59 07:59 15:59 Intake Total 650 / 650 850 / 850 120 / 120 Output Total 155 / 155 775 / 775 Balance 495 / 495 75 / 75 120 / 120 Intake: IV Fluids 850 / 850 0.9 % Sodium Chloride 1,000 ML 650 / 650 @ 60 mls/hr IVC .[id number] [facility] Rx #:[id number] Ancef 2,000 MG In 0.9 % Sodium 200 / 200 Chloride 100 ML @ 200 mls/hr IVPB Q8HR [facility] Rx#:[id number] Oral 650 / 650 0 / 0 120 / 120 Output: Urine 150 / 150 775 / 775 Estimated Blood Loss 5 / 5 Other: Meal Clears # Bowel Movements 0 Weight 100 kg Blood Glucose* 145 115 Patient Weight 12/17/17 23:59 Weight 100 kg - General physical appearance well developed, well nourished, no distress - Eyes normal ocular movement - ENT normal mucosa - Neck Neck exam: trachea midline - Respiratory normal respiratory effort, clear to auscultation - Cardiovascular Cardiovascular exam: Present: RRR - Abdomen Abdomen: Present: bowel sounds present, soft, tender (expected post-operative tenderness) - Incision Incision: Present: clean and dry, intact - Neurologic CN 2-12 grossly intact - Psychiatric oriented to time, oriented to person, oriented to place, speech is normal, memory intact - Labs 12/17/17 03:38 12/17/17 03:38 Diabetes panel 12/17/17 Range/Units 03:38 Sodium 135 L (136-145) mEq/L Potassium 4.7 (3.5-5.1) mEq/L Chloride 104 (98-107) mEq/L Carbon Dioxide 25 (23-29) mEq/L BUN 12 (6-20) mg/dL Creatinine 0.88 (0.70-1.30) mg/dL Glucose 142 H (70-105) mg/dL Calcium 8.4 L (8.6-10.3) mg/dL Calcium panel 12/17/17 Range/Units 03:38 Calcium 8.4 L (8.6-10.3) mg/dL Pituitary panel 12/17/17 Range/Units 03:38 Sodium 135 L (136-145) mEq/L Potassium 4.7 (3.5-5.1) mEq/L Chloride 104 (98-107) mEq/L Carbon Dioxide 25 (23-29) mEq/L BUN 12 (6-20) mg/dL Creatinine 0.88 (0.70-1.30) mg/dL Glucose 142 H (70-105) mg/dL Calcium 8.4 L (8.6-10.3) mg/dL Adrenal panel 12/17/17 Range/Units 03:38 Sodium 135 L (136-145) mEq/L Potassium 4.7 (3.5-5.1) mEq/L Chloride 104 (98-107) mEq/L Carbon Dioxide 25 (23-29) mEq/L BUN 12 (6-20) mg/dL Creatinine 0.88 (0.70-1.30) mg/dL Glucose 142 H (70-105) mg/dL Calcium 8.4 L (8.6-10.3) mg/dL - VTE Documentation of Mechanical Device: Intermittent pneumatic compression device Consult Discharge Plan - Plan Referrals: Gisele Fletcher, INSTRUCTIONAL SYSTEMS SPECIALIST [Primary Care Provider] - - Attending Attestation For this encounter, I have reviewed the SYRUP MACHINE LABORER or PA documentation, treatment plan, and medical decision making; and I have had face to face time with this patient. <Maddie Caicedo - Last Filed: 12/17/17 12:07> Date of Encounter: 12/17/17 - Assessment and Plan (1) Incarcerated ventral hernia Current Visit: Yes Status: Chronic patient s/p incarcerated ventral hernia s/p robotic repair with mesh continue diet - diabetic recheck Hb in 6 hrs due to drop elevated wbc likely reactive due to surgery, will recheck in am observation currenlty Subjective Narrative: pain is controlled, tolerated clears this am no nausea Objective Vital Signs - Last 8 Hours Temp Pulse Resp BP Pulse Ox 12/17/17 10:16 98.6 F 65 16 125/72 94 12/17/17 08:33 93 12/17/17 06:57 98.2 F 77 16 116/70 93 12/17/17 04:58 97.7 F 93 15 128/72 95 Intake and Output 12/16/17 12/17/17 12/17/17 23:59 07:59 15:59 Intake Total 650 / 650 850 / 850 754 / 754 Output Total 155 / 155 775 / 775 0 / 0 Balance 495 / 495 75 / 75 754 / 754 Intake: IV Fluids 850 / 850 234 / 234 0.9 % Sodium Chloride 1,000 ML 650 / 650 234 / 234 @ 60 mls/hr IVC .[id number] [facility] Rx #:[id number] Ancef 2,000 MG In 0.9 % Sodium 200 / 200 Chloride 100 ML @ 200 mls/hr IVPB Q8HR [facility] Rx#:[id number] Oral 650 / 650 0 / 0 520 / 520 Output: Urine 150 / 150 775 / 775 0 / 0 Estimated Blood Loss 5 / 5 Other: Meal Clears # Bowel Movements 0 0 Weight 100 kg Blood Glucose* 145 115 106 Patient Weight 12/17/17 23:59 Weight 100 kg - General physical appearance well developed, well nourished, no distress - Eyes normal ocular movement - ENT normal mucosa, normocephalic - Neck Neck exam: trachea midline - Respiratory normal expansion, clear to auscultation - Cardiovascular Cardiovascular exam: Present: RRR - Abdomen Abdomen: Present: bowel sounds present, soft, tender - Incision Incision: Present: clean and dry, intact - Integumentary no rash, no growths - Neurologic CN 2-12 grossly intact - Musculoskeletal normal posture - Psychiatric oriented to time, oriented to person, oriented to place, speech is normal, memory intact - Labs 12/17/17 03:38 12/17/17 03:38 Diabetes panel 12/17/17 Range/Units 03:38 Sodium 135 L (136-145) mEq/L Potassium 4.7 (3.5-5.1) mEq/L Chloride 104 (98-107) mEq/L Carbon Dioxide 25 (23-29) mEq/L BUN 12 (6-20) mg/dL Creatinine 0.88 (0.70-1.30) mg/dL Glucose 142 H (70-105) mg/dL Calcium 8.4 L (8.6-10.3) mg/dL Calcium panel 12/17/17 Range/Units 03:38 Calcium 8.4 L (8.6-10.3) mg/dL Pituitary panel 12/17/17 Range/Units 03:38 Sodium 135 L (136-145) mEq/L Potassium 4.7 (3.5-5.1) mEq/L Chloride 104 (98-107) mEq/L Carbon Dioxide 25 (23-29) mEq/L BUN 12 (6-20) mg/dL Creatinine 0.88 (0.70-1.30) mg/dL Glucose 142 H (70-105) mg/dL Calcium 8.4 L (8.6-10.3) mg/dL Adrenal panel 12/17/17 Range/Units 03:38 Sodium 135 L (136-145) mEq/L Potassium 4.7 (3.5-5.1) mEq/L Chloride 104 (98-107) mEq/L Carbon Dioxide 25 (23-29) mEq/L BUN 12 (6-20) mg/dL Creatinine 0.88 (0.70-1.30) mg/dL Glucose 142 H (70-105) mg/dL Calcium 8.4 L (8.6-10.3) mg/dL - Attending Attestation I have personally performed a face to face evaluation on this patient. I have reviewed and agree with the care plan. History and Exam by me shows:
--- NOTE | 2017-12-17 10:30 | Internal Med Progress Note ---
Hospitalist Progress Note - Encounter Date of Encounter: 12/17/17 Time of Encounter: 10:28 - Subjective Interval History: Pt seen and examined in the room. He feels fine and has no abdominal pain, N/V, or diarrhea. No fever or chills. Has been tolerate oral. - Exam Vitals: Temp Pulse Resp BP Pulse Ox 98.6 F 65 16 125/72 94 12/17/17 10:16 12/17/17 10:16 12/17/17 10:16 12/17/17 10:16 12/17/17 10:16 Exam: PHYSICAL EXAMINATION: GENERAL APPEARANCE: The patient is alert, oriented and in no acute distress. HEENT: Head is normocephalic. The sinuses are nontender. Pupils are equal and reactive. The nares are patent. Oropharynx clear without lesions. NECK: Supple without lymphadenopathy. HEART: Regular rate and rhythm. LUNGS: No crackles or wheezes are heard. ABDOMEN: midline surgical wound with stitches, dry and no drainage. positive bowel sound. EXTREMITIES: Without cyanosis, clubbing or edema. NEUROLOGICAL: Gross nonfocal. SKIN: Warm and dry without any rash. - Assessment and Plan (1) Umbilical hernia, incarcerated Current Visit: Yes Status: Chronic Assessment and Plan: Patient with HX of ventral abdominal umbilical hernia presented with abdominal pain nausea and vomiting. CT showed incarcerated umbilical hernia. He underwent robotic hernia repair with mesh on 12/16. - POD 1, doing well, tolerate clear liquid, no pain, passed gas. - WBC slightly elevated likely due to stress and surgical trauma, received two dose of Ancef do far, Surgical wound looks good. Continue to monitor. - Continue monitor H/H. - Possible DC in the morning. (2) Hyperglycemia due to type 2 diabetes mellitus Current Visit: Yes Status: Chronic Assessment and Plan: -Patient and family state that he is not using his right toes or other insulin as currently not using anything for diabetes -Last A1c was over 6.6 on 12/04/2017 -Continue home insulin regimen and continue insulin sliding scale. (3) Depression Current Visit: No Status: Chronic Assessment and Plan: Continue home medications (4) Hypertension Current Visit: Yes Status: Chronic Assessment and Plan: -Continue home medications -blood pressure currently stable (5) Hyperlipidemia Current Visit: Yes Status: Chronic Assessment and Plan: Continue home medications (6) Lung nodule seen on imaging study Current Visit: Yes Status: Acute Assessment and Plan: -5 mm left upper lobe nodule found incidentally -will need outpatient follow-up (7) DVT prophylaxis Current Visit: Yes Status: Acute Assessment and Plan: Heparin subcutaneous - Time Spent with Patient Total time spent is greater than 50% in coordination of care (as documented) at patient's floor/unit and/or counseling patient: Greater than 35 minutes Plan of Care Discussed with: patient Internal Medicine: Result - Labs CBC & Chem 7: 12/17/17 03:38 12/17/17 03:38 Labs: Short CBC 12/17/17 Range/Units 03:38 WBC 14.9 H D (4.3-11.1) K/mcL Hgb 12.1 L D (12.9-16.9) g/dL Hct 36.7 L (37.5-50.1) % Plt Count 357 (140-400) K/mcL Neutrophils # 13.1 H (1.6-8.9) K/mcL BMP 12/17/17 03:38 Sodium 135 L Potassium 4.7 Chloride 104 Carbon Dioxide 25 BUN 12 Creatinine 0.88 Glucose 142 H Calcium 8.4 L - ABG Interpretation ABG results: PT/INR, D-dimer PT 10.6 Seconds (9.4-12.1) 12/16/17 09:28 - VTE Documentation of Mechanical Device: Intermittent pneumatic compression device Consult Discharge Plan - Plan Referrals: Gisele Fletcher, [employer] [employer] [facility] [Primary Care Provider] - (2) Hyperglycemia due to type 2 diabetes mellitus Qualifiers: Diabetes mellitus long term care pharmacist insulin use: with long term care pharmacist use Qualified Code(s) : E11.65 - Type 2 diabetes mellitus with hyperglycemia; Z79.4 - intermediate frame tender ( current) use of insulin (3) Depression Qualifiers: Depression Type: other depression Qualified Code(s): F32.89 - Other specified depressive episodes (4) Hypertension Qualifiers: Hypertension type: essential hypertension Qualified Code(s): I10 - Essential (primary) hypertension (5) Hyperlipidemia Qualifiers: Hyperlipidemia type: unspecified Qualified Code(s): E78.5 - Hyperlipidemia, unspecified
[2017-12-17] MEDS: *HR* HYDROcodone/Acet 5/325 mg TABLET PO PRN ×2 (11:38→20:56)
[2017-12-17 17:06] LABS: Hemoglobin 12.3 g/dL (12.9-16.9)
[2017-12-17] MEDS: Insulin DETEMIR 100 UNIT/ML X5UNITS SQ SCH (20:29)
[2017-12-18] MEDS: Ondansetron 4 MG/2 ML VIAL IVP PRN ×2 (04:35→20:28)
[2017-12-18] MEDS: *HR* Heparin 5,000 UNIT/ML VIAL SQ SCH ×2 (05:36→18:28)
[2017-12-18 06:53] LABS: Basophils % 0.1 %; Hematocrit 39.7 % (37.5-50.1); Hemoglobin 13.2 g/dL (12.9-16.9); Immature Granulocytes % 0.6 % (0-4); Lymphocytes # 0.7 K/mcL (0.6-4.6); Lymphocytes % 4.6 %; Mean Corpuscular HGB Conc 33.2 g/dL (31.6-35.5); Mean Corpuscular Hemoglobin 28.3 pg (28.0-33.3); Mean Platelet Volume 8.8 fL (9.4-12.4); Monocytes # 1.1 K/mcL (0.0-1.3); Neutrophils # 13.9 K/mcL (1.6-8.9); Platelet Count 347 K/mcL (140-400); Red Blood Count 4.67 M/mcL (4.19-5.50); Red Cell Distribution Width 13.2 % (11.5-14.5); Segmented Neutrophils % 87.7 %
[2017-12-18] MEDS: Insulin LISPRO 300 UNITS/3 ML VIAL SQ SCH ×4 (08:10→21:36)
--- NOTE | 2017-12-18 09:48 | General Surgery Progress Note ---
<Jessica Lazcano Sheree - Last Filed: 12/18/17 10:20> Date of Encounter: 12/18/17 Time of Encounter: 09:30 - Assessment and Plan (1) Umbilical hernia, incarcerated Current Visit: Yes Status: Chronic POD #2 robotic repair incarcerated ventral hernia repair with mesh with Dr. Caicedo Patient nauseated with bloating and poor appetite today Back off to Clear liquid diet IV fluids- 0.9 at 75ml/hour Supportive care Abdominal binder- needs a bigger binder Ambulate hallways TID with assistance- discussed with RN IS every 1 hour while awake Repeat am labs- CBC, BMP (2) Nausea Current Visit: Yes Status: Acute Suspect possible post-operative ileus Back off to clear liquids IV fluids Reglan 10mg IV every 6 hours for 48 hours (3) DVT prophylaxis Current Visit: Yes Status: Acute Heparin 5,000 units SQ twice daily for DVT prophylaxis Ambulate hallways TID with assistance Subjective Patient reports: no new complaints, feels better, still having pain, pain is less, voiding w/o difficulty, no flatus (denies flatus today), nausea ( nauseated this morning after taking percocet), afebrile, other (Patient states that he has not been out of bed since surgery; Poor appetite and feels bloated today) Objective Vital Signs - Last 8 Hours Temp Pulse Resp BP Pulse Ox 12/18/17 07:54 98.5 F 87 14 143/83 93 12/18/17 05:30 97.7 F 81 18 137/86 95 Intake and Output 12/17/17 12/18/17 12/18/17 23:59 07:59 15:59 Intake Total 340 / 340 0 / 0 0 / 0 Output Total 0 / 0 2002 Balance 340 / 340 -2002 0 / 0 Intake: IV Fluids 100 / 100 Ancef 2,000 MG In 0.9 % Sodium 100 / 100 Chloride 100 ML @ 200 mls/hr IVPB Q8HR [facility] Rx#:[id number] Oral 240 / 240 0 / 0 0 / 0 Output: Urine 0 / 0 1999 Right Nephrostomy Other: Meal Dinner Breakfast Percent of Meal Consumed 5% 0% # Voids 1 Weight 101.3 kg Blood Glucose* 133 135 Patient Weight 12/18/17 23:59 Weight 101.3 kg - General physical appearance well developed, well nourished, no distress - Eyes normal ocular movement - ENT normal mucosa, atraumatic, normocephalic - Neck Neck exam: trachea midline - Respiratory normal respiratory effort, clear to auscultation, other (diminished bibasilar bases) - Cardiovascular Cardiovascular exam: Present: RRR - Abdomen Abdomen: Present: bowel sounds present (minimal, hypoactive), soft, tender ( expected post-operative tenderness) - Incision Incision: Present: clean and dry, intact - Neurologic CN 2-12 grossly intact - Psychiatric oriented to time, oriented to person, oriented to place, speech is normal, memory intact - Labs 12/18/17 06:39 12/17/17 03:38 - VTE Documentation of Mechanical Device: Intermittent pneumatic compression device Consult Discharge Plan - Plan Referrals: Gisele Fletcher, JANELLE [Primary Care Provider] - - Attending Attestation For this encounter, I have reviewed the BLAST SETTER or PA documentation, treatment plan, and medical decision making; and I have had face to face time with this patient. <Maddie Caicedo - Last Filed: 12/18/17 17:51> Date of Encounter: 12/18/17 - Assessment and Plan (1) Incarcerated ventral hernia Current Visit: Yes Status: Chronic s/p robotic incarcerated ventral hernia repair with mesh clears prn pain control gi/dvt prophylaxis trend wbc vitals stable patient states his abdominal distention is his normal abdomen Subjective Patient reports: feels better, still having pain, pain is less, tolerating liquids well, voiding w/o difficulty, flatus, no bowel movement, nausea ( nauseated this morning after taking percocet, has resolved), afebrile Objective Intake and Output 12/18/17 12/18/17 12/18/17 07:59 15:59 23:59 Other: Blood Glucose* 121 - General physical appearance well developed, well nourished, no distress - Eyes normal ocular movement - ENT normal mucosa, normocephalic - Neck Neck exam: trachea midline - Respiratory normal expansion, normal respiratory effort, clear to auscultation - Cardiovascular Cardiovascular exam: Present: RRR - Abdomen Abdomen: Present: bowel sounds present, soft, tender - Incision Incision: Present: clean and dry, intact - Integumentary no rash, no growths - Musculoskeletal normal posture - Psychiatric oriented to time, oriented to person, oriented to place, speech is normal, memory intact - Labs 12/18/17 06:39 12/17/17 03:38 - Attending Attestation I have personally performed a face to face evaluation on this patient. I have reviewed and agree with the care plan. History and Exam by me shows:.
[2017-12-18] MEDS: Gabapentin 300 MG CAPSULE PO SCH ×3 (10:01→21:41)
[2017-12-18] MEDS: (Liraglutide [Victoza 2-Pak] 1.2 MG) PO SCH (10:03)
--- NOTE | 2017-12-18 10:43 | Internal Med Progress Note ---
Hospitalist Progress Note - Encounter Date of Encounter: 12/18/17 Time of Encounter: 10:43 - Subjective Interval History: Seen and examined at the bedside He states pain is controlled, but is yet to have a BM, passing flatus, he thinks his abdomen is more distended He is POD 1 s/p incarcerated umbilical hernia repair Leukocytosis continues to trend up, he is afebrile - Exam Vitals: Temp Pulse Resp BP Pulse Ox 98.0 F 90 17 126/78 93 12/18/17 10:16 12/18/17 10:16 12/18/17 10:16 12/18/17 10:16 12/18/17 10:16 Exam: PHYSICAL EXAMINATION: GENERAL APPEARANCE: The patient is alert, oriented and in no acute distress. HEENT: Head is normocephalic. The sinuses are nontender. Pupils are equal and reactive. The nares are patent. Oropharynx clear without lesions. NECK: Supple without lymphadenopathy. HEART: Regular rate and rhythm. LUNGS: No crackles or wheezes are heard. ABDOMEN: midline surgical wound with stitches, dry and no drainage. positive bowel sound. EXTREMITIES: Without cyanosis, clubbing or edema. NEUROLOGICAL: Gross nonfocal. SKIN: Warm and dry without any rash - Assessment and Plan (1) Hyperglycemia due to type 2 diabetes mellitus Current Visit: Yes Status: Chronic Assessment and Plan: Last A1c was over 6.6 on 12/04/2017 Continue home insulin regimen and continue insulin sliding scale. (2) DVT prophylaxis Current Visit: Yes Status: Acute Assessment and Plan: Heparin subcutaneous (3) Umbilical hernia, incarcerated Current Visit: Yes Status: Chronic Assessment and Plan: Patient with HX of ventral abdominal umbilical hernia presented with abdominal pain nausea and vomiting. CT showed incarcerated umbilical hernia. He underwent robotic hernia repair with mesh on 12/16. POD 2, doing well, tolerate clear liquid, no pain, passed gas. WBC slightly elevated likely due to stress and surgical trauma, received two dose of Ancef do far, Surgical wound looks good. Continue to monitor. H and H is stable he remains afebrile Patent with increasing abdominal girth as well as nausea, surgery changed diet to clear liquid, continue to monitor (4) Depression Current Visit: Yes Status: Chronic Assessment and Plan: Continue home medications (5) Hypertension Current Visit: Yes Status: Chronic Assessment and Plan: Continue home meds (6) Hyperlipidemia Current Visit: Yes Status: Chronic Assessment and Plan: Continue home medications (7) Lung nodule seen on imaging study Current Visit: Yes Status: Acute Assessment and Plan: -5 mm left upper lobe nodule found incidentally -will need outpatient follow-up - Time Spent with Patient Total time spent is greater than 50% in coordination of care (as documented) at patient's floor/unit and/or counseling patient: Plan of Care Discussed with: patient Internal Medicine: Result - Labs CBC & Chem 7: 12/18/17 06:39 12/17/17 03:38 Labs: Short CBC 12/17/17 12/18/17 Range/Units 16:51 06:39 WBC 15.8 H (4.3-11.1) K/mcL Hgb 12.3 L 13.2 (12.9-16.9) g/dL Hct 37.0 L 39.7 (37.5-50.1) % Plt Count 347 (140-400) K/mcL Neutrophils # 13.9 H (1.6-8.9) K/mcL - ABG Interpretation ABG results: PT/INR, D-dimer PT 10.6 Seconds (9.4-12.1) 12/16/17 09:28 - VTE Documentation of Mechanical Device: Intermittent pneumatic compression device Consult Discharge Plan - Plan Referrals: Gisele Fletcher, [employer] [employer] [Primary Care Provider] - (1) Hyperglycemia due to type 2 diabetes mellitus Qualifiers: Diabetes mellitus [facility] insulin use: with [facility] use Qualified Code(s) : E11.65 - Type 2 diabetes mellitus with hyperglycemia; Z79.4 - medicine worker ( current) use of insulin (4) Depression Qualifiers: Depression Type: other depression Qualified Code(s): F32.89 - Other specified depressive episodes (5) Hypertension Qualifiers: Hypertension type: essential hypertension Qualified Code(s): I10 - Essential (primary) hypertension (6) Hyperlipidemia Qualifiers: Hyperlipidemia type: unspecified Qualified Code(s): E78.5 - Hyperlipidemia, unspecified
[2017-12-18] MEDS: Metoclopramide 10 MG/2 ML VIAL IVP SCH ×2 (13:39→18:28)
[2017-12-18] MEDS: Insulin DETEMIR 100 UNIT/ML X5UNITS SQ SCH (21:42)
[2017-12-19] MEDS: Metoclopramide 10 MG/2 ML VIAL IVP SCH ×4 (00:26→17:05)
[2017-12-19] MEDS: *HR* HYDROcodone/Acet 5/325 mg TABLET PO PRN (05:31)
[2017-12-19] MEDS: *HR* Heparin 5,000 UNIT/ML VIAL SQ SCH (05:33)
[2017-12-19 06:40] LABS: Basophils % 0.1 %; Eosinophils % 0.1 %; Hematocrit 40.5 % (37.5-50.1); Hemoglobin 13.4 g/dL (12.9-16.9); Immature Granulocytes % 0.5 % (0-4); Lymphocytes # 1.1 K/mcL (0.6-4.6); Lymphocytes % 7.4 %; Mean Corpuscular HGB Conc 33.1 g/dL (31.6-35.5); Mean Corpuscular Volume 84.6 fL (83.0-100.0); Monocytes # 1.2 K/mcL (0.0-1.3); Monocytes % 7.6 %; Neutrophils # 12.8 K/mcL (1.6-8.9); Platelet Count 360 K/mcL (140-400); Red Blood Count 4.79 M/mcL (4.19-5.50); Red Cell Distribution Width 13.1 % (11.5-14.5); Segmented Neutrophils % 84.3 %
[2017-12-19 06:55] LABS: BUN/Creatinine Ratio 22 (6-26); Blood Urea Nitrogen 18 mg/dL (6-20); Calcium 8.9 mg/dL (8.6-10.3); Carbon Dioxide 27 mEq/L (23-29); Chloride 100 mEq/L (98-107); Glucose 179 mg/dL (70-105); Osmolality,Calculated 284 (280-300); Sodium 134 mEq/L (136-145); eGFR For Non-African Americans > 60 (> 60)
[2017-12-19] MEDS: Insulin LISPRO 300 UNITS/3 ML VIAL SQ SCH ×3 (08:55→17:01)
[2017-12-19] MEDS: Gabapentin 300 MG CAPSULE PO SCH ×2 (08:56→17:04)
[2017-12-19 11:09] VITALS: BP 133/81
--- NOTE | 2017-12-19 11:36 | Internal Med Progress Note ---
Hospitalist Progress Note - Encounter Date of Encounter: 12/19/17 Time of Encounter: 11:36 - Subjective Interval History: Seen and examined at the bedside He states pain is controlled, but is yet to have a BM, passing flatus, he thinks his abdomen is more distended He is POD 3 s/p incarcerated umbilical hernia repair Leukocytosis is stable at 15, patient remain afebrile Xray ordered by surgery "Diffuse gaseous distention of small bowel and colon. Findings may represent postoperative ileus, however there is paucity of bowel gas distally, and a component of distal colonic obstruction is not excluded. Continued radiographic follow-up recommended to ensure resolution. - Exam Vitals: Temp Pulse Resp BP Pulse Ox 98.4 F 56 16 133/81 95 12/19/17 11:07 12/19/17 11:07 12/19/17 11:07 12/19/17 11:07 12/19/17 11:07 Exam: PHYSICAL EXAMINATION: GENERAL APPEARANCE: The patient is alert, oriented and in no acute distress. HEENT: Head is normocephalic. The sinuses are nontender. Pupils are equal and reactive. The nares are patent. Oropharynx clear without lesions. NECK: Supple without lymphadenopathy. HEART: Regular rate and rhythm. LUNGS: No crackles or wheezes are heard. ABDOMEN: midline surgical wound with stitches, dry and no drainage. positive bowel sound. EXTREMITIES: Without cyanosis, clubbing or edema. NEUROLOGICAL: Gross nonfocal. SKIN: Warm and dry without any rash - Assessment and Plan (1) Hyperglycemia due to type 2 diabetes mellitus Current Visit: Yes Status: Chronic Assessment and Plan: Last A1c was over 6.6 on 12/04/2017 Continue home insulin regimen and continue insulin sliding scale. (2) DVT prophylaxis Current Visit: Yes Status: Acute Assessment and Plan: Heparin subcutaneous (3) Umbilical hernia, incarcerated Current Visit: Yes Status: Chronic Assessment and Plan: Patient with HX of ventral abdominal umbilical hernia presented with abdominal pain nausea and vomiting. CT showed incarcerated umbilical hernia. He underwent robotic hernia repair with mesh on 12/16. POD 3 Tolerating orally Diet was de-escalated by surgery 8/14 pm Xray this a.m with findings noted Patient has a BM this am Alli continue to monitor Anticipate discharge a.m if patient remains stable (4) Depression Current Visit: Yes Status: Chronic Assessment and Plan: Continue home medications (5) Hypertension Current Visit: Yes Status: Chronic Assessment and Plan: Continue home meds (6) Hyperlipidemia Current Visit: Yes Status: Chronic Assessment and Plan: Continue home medications (7) Lung nodule seen on imaging study Current Visit: Yes Status: Acute Assessment and Plan: -5 mm left upper lobe nodule found incidentally -will need outpatient follow-up (8) Ileus Current Visit: Yes Status: Acute Assessment and Plan: Per Xray Surgery following Continue to monitor Repeat Xray a.m - Time Spent with Patient Total time spent is greater than 50% in coordination of care (as documented) at patient's floor/unit and/or counseling patient: Plan of Care Discussed with: patient Internal Medicine: Result - Labs CBC & Chem 7: 12/19/17 06:22 12/19/17 06:22 Labs: Short CBC 12/19/17 Range/Units 06:22 WBC 15.2 H (4.3-11.1) K/mcL Hgb 13.4 (12.9-16.9) g/dL Hct 40.5 (37.5-50.1) % Plt Count 360 (140-400) K/mcL Neutrophils # 12.8 H (1.6-8.9) K/mcL BMP 12/19/17 06:22 Sodium 134 L Potassium 4.0 Chloride 100 Carbon Dioxide 27 BUN 18 Creatinine 0.82 Glucose 179 H Calcium 8.9 - ABG Interpretation ABG results: PT/INR, D-dimer PT 10.6 Seconds (9.4-12.1) 12/16/17 09:28 - Impressions Impressions Abdomen X-Ray 12/19/17 07:00 IMPRESSION: Diffuse gaseous distention of small bowel and colon. Findings may represent postoperative ileus, however there is paucity of bowel gas distally, and a component of distal colonic obstruction is not excluded. Continued radiographic follow-up recommended to ensure resolution. The findings were sent to the [facility] at 9:33 am on 12/19/2017to be communicated to a licensed caregiver. D/ / Devaughn Segundo MD / Devaughn Segundo MD Interpreting Provider: Devaughn Segundo MD - VTE Documentation of Mechanical Device: Intermittent pneumatic compression device Consult Discharge Plan - Plan Additional Instructions: #1 may shower, no tub bath for 2 weeks #2 wash incisions with soap and water and pat dry daily #3 no lifting, pushing, pulling more than 15 pounds for the next 6 weeks #4 no driving until off narcotics for 24 hours and able to safely react in the car #5 may climb stairs #6 Abdominal binder at all times except while showering #7 CBC prior to visit next week with Jessica Lazcano CNP Referrals: Gisele Fletcher CNP [Primary Care Provider] - Jessica Lazcano CNP [Advanced Practice Nurse] - 12/27/17 8:30 am (surgery follow-up) Prescriptions: HYDROcodone/Acet 5/325 mg [[place] 5-325 mg] 1 tab PO Q6HR PRN 7 Days #28 tablet PRN Reason: Moderate Pain Ondansetron ODT [Zofran ODT] 4 mg SL Q6HR PRN #30 tab.rapdis PRN Reason: Nausea Docusate [Colace] 100 mg PO BID #30 capsule (1) Hyperglycemia due to type 2 diabetes mellitus Qualifiers: Diabetes mellitus recruiting consultant insulin use: with retirement use Qualified Code(s) : E11.65 - Type 2 diabetes mellitus with hyperglycemia; Z79.4 - director heart ( current) use of insulin (4) Depression Qualifiers: Depression Type: other depression Qualified Code(s): F32.89 - Other specified depressive episodes (5) Hypertension Qualifiers: Hypertension type: essential hypertension Qualified Code(s): I10 - Essential (primary) hypertension (6) Hyperlipidemia Qualifiers: Hyperlipidemia type: unspecified Qualified Code(s): E78.5 - Hyperlipidemia, unspecified
--- NOTE | 2017-12-19 12:29 | General Surgery Progress Note ---
Date of Encounter: 12/19/17 Time of Encounter: 12:15 - Assessment and Plan (1) Umbilical hernia, incarcerated Current Visit: Yes Status: Chronic POD #3 robotic repair incarcerated ventral hernia repair with mesh with Dr. Caicedo Patient is feeling much better today and passing flatus Advance to soft diet Saline lock IV fluids Supportive care Abdominal binder Ambulate hallways TID with assistance- discussed with RN IS every 1 hour while awake May discharge from a surgical standpoint if able to tolerate a soft diet for lunch. Follow-up in one week with repeat labs. (2) Nausea Current Visit: Yes Status: Acute Resolved Advance to soft diet (3) DVT prophylaxis Current Visit: Yes Status: Acute Heparin 5,000 units SQ twice daily for DVT prophylaxis Ambulate hallways TID with assistance Subjective Patient reports: no new complaints, feels better, still having pain, pain is less, tolerating liquids well, voiding w/o difficulty, flatus, bowel movement, afebrile Objective Vital Signs - Last 8 Hours Temp Pulse Resp BP Pulse Ox 12/19/17 11:07 98.4 F 56 16 133/81 95 12/19/17 07:04 97.7 F 84 16 122/74 91 Intake and Output 12/18/17 12/19/17 12/19/17 23:59 07:59 15:59 Intake Total 120 / 120 500 / 500 120 / 120 Output Total 0 / 0 400 / 400 50 / 50 Balance 120 / 120 100 / 100 70 / 70 Intake: Oral 120 / 120 500 / 500 120 / 120 Output: Urine 0 / 0 400 / 400 50 / 50 Other: Meal CLEARS Clear Percent of Meal Consumed 0% # Bowel Movements 0 0 Weight 100.5 kg Blood Glucose* 141 184 113 Patient Weight 12/19/17 23:59 Weight 100.5 kg - General physical appearance well developed, well nourished, no distress - Eyes normal ocular movement - ENT normal mucosa, atraumatic, normocephalic - Neck Neck exam: trachea midline - Respiratory normal respiratory effort, clear to auscultation - Cardiovascular Cardiovascular exam: Present: RRR - Abdomen Abdomen: Present: bowel sounds present, soft, tender (Expected postoperative tenderness) - Incision Incision: Present: clean and dry, intact - Neurologic CN 2-12 grossly intact - Psychiatric oriented to time, oriented to person, oriented to place, speech is normal, memory intact - Labs 12/19/17 06:22 12/19/17 06:22 Diabetes panel 12/19/17 Range/Units 06:22 Sodium 134 L (136-145) mEq/L Potassium 4.0 (3.5-5.1) mEq/L Chloride 100 (98-107) mEq/L Carbon Dioxide 27 (23-29) mEq/L BUN 18 (6-20) mg/dL Creatinine 0.82 (0.70-1.30) mg/dL Glucose 179 H (70-105) mg/dL Calcium 8.9 (8.6-10.3) mg/dL Calcium panel 12/19/17 Range/Units 06:22 Calcium 8.9 (8.6-10.3) mg/dL Pituitary panel 12/19/17 Range/Units 06:22 Sodium 134 L (136-145) mEq/L Potassium 4.0 (3.5-5.1) mEq/L Chloride 100 (98-107) mEq/L Carbon Dioxide 27 (23-29) mEq/L BUN 18 (6-20) mg/dL Creatinine 0.82 (0.70-1.30) mg/dL Glucose 179 H (70-105) mg/dL Calcium 8.9 (8.6-10.3) mg/dL Adrenal panel 12/19/17 Range/Units 06:22 Sodium 134 L (136-145) mEq/L Potassium 4.0 (3.5-5.1) mEq/L Chloride 100 (98-107) mEq/L Carbon Dioxide 27 (23-29) mEq/L BUN 18 (6-20) mg/dL Creatinine 0.82 (0.70-1.30) mg/dL Glucose 179 H (70-105) mg/dL Calcium 8.9 (8.6-10.3) mg/dL - VTE Documentation of Mechanical Device: Intermittent pneumatic compression device Consult Discharge Plan - Plan Additional Instructions: #1 may shower, no tub bath for 2 weeks #2 wash incisions with soap and water and pat dry daily #3 no lifting, pushing, pulling more than 15 pounds for the next 6 weeks #4 no driving until off narcotics for 24 hours and able to safely react in the car #5 may climb stairs #6 Abdominal binder at all times except while showering #7 CBC prior to visit next week with Jessica Lazcano CNP Referrals: Gisele Fletcher CNP [Primary Care Provider] - Jessica Lazcano CNP [Advanced Practice Nurse] - 12/27/17 8:30 am (surgery follow-up) Prescriptions: HYDROcodone/Acet 5/325 mg [[place] 5-325 mg] 1 tab PO Q6HR PRN 7 Days #28 tablet PRN Reason: Moderate Pain Ondansetron ODT [Zofran ODT] 4 mg SL Q6HR PRN #30 tab.rapdis PRN Reason: Nausea Docusate [Colace] 100 mg PO BID #30 capsule - Attending Attestation For this encounter, I have reviewed the SQUILGEER or PA documentation, treatment plan, and medical decision making; and I have had face to face time with this patient.
--- NOTE | 2017-12-19 16:05 | Discharge Summary ---
- NOTES TO OUTPATIENT PROVIDER Notes to Outpatient Provider: Patient admitted for incarcerated hernia. s/p surgery and now having BM and tolerating orally. 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 (2) DVT prophylaxis Priority: Primary Status: Resolved (3) Umbilical hernia, incarcerated Priority: Primary Status: Resolved (4) Depression Priority: Secondary Status: Chronic Qualifiers: Depression Type: other depression Qualified Code(s): F32.89 - Other specified depressive episodes (5) Hypertension Priority: Secondary Status: Chronic Qualifiers: Hypertension type: essential hypertension Qualified Code(s): I10 - Essential (primary) hypertension (6) Hyperlipidemia Priority: Secondary Status: Chronic Qualifiers: Hyperlipidemia type: unspecified Qualified Code(s): E78.5 - Hyperlipidemia , unspecified (7) Lung nodule seen on imaging study Priority: Secondary Status: Acute (8) Ileus Priority: Primary Status: Suspected Hospital course: Mr. Pan is a 57 year old male with PMH of Depression, HTN, DM, Morbid Obesity , HLD Patient with HX of ventral abdominal umbilical hernia presented with abdominal pain nausea and vomiting. CT showed incarcerated umbilical hernia. He underwent robotic hernia repair with mesh on 12/16. He developed ileus post-op with some gaseous distension, but is now tolerating orally and ambulatory He also developed luekocytosis of unknown origin post-op He remained afebrile Per surgery, his bowel was not compromised and he is very low risk for any infection. He has advanced his diet to soft, which he tolerated and is cleared from a surgical stand point for discharge with regular follow up with surgery Chronic medical conditions remained stable in-patient and patient discharged home in stable clinical condition Discharge discussed with: patient, family, nurse, literacy consultant - Time Spent with Patient Total time spent providing and/or coordinating discharge services: Greater than 30 minutes (40 mins spent on patient face to face encounter, discussion with consultants, and documentation) - Discharge Medications Prescriptions: HYDROcodone/Acet 5/325 mg [[place] 5-325 mg] 1 tab PO Q6HR PRN 7 Days #28 tablet PRN Reason: Moderate Pain Ondansetron ODT [Zofran ODT] 4 mg SL Q6HR PRN #30 tab.rapdis PRN Reason: Nausea Docusate [Colace] 100 mg PO BID #30 capsule Home Medications: ALPRAZolam [Xanax 1 MG Tablet] 1 mg PO TID PRN 08/02/17 [History] Gabapentin [Neurontin] 300 mg PO TID 08/02/17 [History] Insulin Glargine,Hum.rec.anlog [Lantus Solostar] 10 unit SQ QAM 08/02/17 [ History] Pravastatin Sodium [Pravachol] 10 mg PO HS 08/02/17 [History] Citalopram Hydrobromide [Citalopram HBr] 20 mg PO DAILY 12/16/17 [History] Insulin Glargine [Lantus] 12 unit SQ QPM 12/16/17 [History] Liraglutide [Victoza 2-Alok] 1.2 mg PO DAILY 12/16/17 [History] Lisinopril [Zestril] 5 mg PO DAILY 12/16/17 [History] Quetiapine Fumarate [SEROquel] 100 mg PO HS 12/16/17 [History] cloNIDine HCl [CloNIDine HCl] 0.1 mg PO DAILY PRN 12/16/17 [History] Docusate [Colace] 100 mg PO BID #30 capsule 12/19/17 [Rx] HYDROcodone/Acet 5/325 mg [[place] 5-325 mg] 1 tab PO Q6HR PRN 7 Days #28 tablet 12/19/17 [Rx] Ondansetron ODT [Zofran ODT] 4 mg SL Q6HR PRN #30 tab.rapdis 12/19/17 [Rx] Allergies/Adverse Reactions: 3 Allergy/AdvReac Type Severity Reaction Status Date / Time No Known Allergies Allergy Verified 12/16/17 09:06 Date of admission: 12/18/17 15:13 Primary care physician: Gisele Fletcher CNP Discharging clinician: Anjum Glaser Anticipated date of discharge: 12/19/17 - Constitutional Vitals: Temp Pulse Resp BP Pulse Ox 98.4 F 56 16 133/81 95 12/19/17 11:07 12/19/17 11:07 12/19/17 11:07 12/19/17 11:07 12/19/17 11:07 PHYSICAL EXAMINATION: GENERAL APPEARANCE: The patient is alert, oriented and in no acute distress. HEENT: Head is normocephalic. The sinuses are nontender. Pupils are equal and reactive. The nares are patent. Oropharynx clear without lesions. NECK: Supple without lymphadenopathy. HEART: Regular rate and rhythm. LUNGS: No crackles or wheezes are heard. ABDOMEN: midline surgical wound with stitches, dry and no drainage. positive bowel sound. EXTREMITIES: Without cyanosis, clubbing or edema. NEUROLOGICAL: Gross nonfocal. SKIN: Warm and dry without any rash - Patient Status Disposition: Home, Self-Care Condition: Good Functional capacity at discharge: independent ambulation Overall status at discharge: patient is progressing back to baseline - Discharge Instructions Follow Up With: Jessica Lazcano CNP [Advanced Practice Nurse] - 12/27/17 8:30 am (surgery follow-up) Additional Instructions: #1 may shower, no tub bath for 2 weeks #2 wash incisions with soap and water and pat dry daily #3 no lifting, pushing, pulling more than 15 pounds for the next 6 weeks #4 no driving until off narcotics for 24 hours and able to safely react in the car #5 may climb stairs #6 Abdominal binder at all times except while showering #7 CBC prior to visit next week with Jessica Lazcano CNP - Diet and Activity Activity: resume usual activities as tolerated Diet: advance to your usual diet - VTE Documentation of Mechanical Device: Intermittent pneumatic compression device
== END 2017-12-19 17:22 | disposition home or self-care (01) | DRG 227 ==
LOC: 3ANU 09:00 → EMEROOARM 09:00 → SUATTDRO 11:49 → 3ANU 12:21
PROVIDERS: ADMIT Internal Medicine; ATTEND Internal Medicine